=== PATIENT | male | born 1930 | race Caucasian/White ===

== ENCOUNTER → 2016-08-14 | Outpatient (REF) | payer MEDICARE, OTHER ==
[2016-08-14 18:43] LABS: TOTAL PROTEIN 6.3 GM/DL (6.4-8.2)
[2016-08-14 18:47] LABS: VITAMIN B12 LEVEL 1618 PG/ML
[2016-08-14 18:48] LABS: FOLATE 8.7 NG/ML
[2016-08-15 13:54] LABS: ALBUMIN 2.82 GM/DL (3.29-5.55); ALBUMIN % 44.8 % (55.8-66.1); GAMMA GLOBULIN % 22.7 % (11.1-18.8)
== END ==
LOC: M LABNEURO 17:05
PROVIDERS: ATTEND Psychiatry & Neurology Neurology
DX: G62.9 Polyneuropathy, unspecified (principal)

== ENCOUNTER 2016-08-20 14:29 | Inpatient (IN) | payer MEDICARE, OTHER ==
[~2016-08-20] VITALS: Ht 170.2 cm; Wt 49.6 kg
[2016-08-20 15:01] LABS: ABG BASE EXCESS 4.4 (-2.0-2.0); ABG DEVICE NASAL CANN; ABG HCO3 29.3 MEQ/L (22.0-26.0); ABG PARTIAL PRESSURE CO2 45.5 mmHg (35.0-45.0); ABG PARTIAL PRESSURE O2 109.6 mmHg (75.0-100.0); ABG STANDARD HCO3 28.5 MEQ/L (22.0-26.0); ABG TOTAL CO2 30.7 MEQ/L (23.0-31.0); ABG pH (ARTERIAL) 7.427 UNITS (7.350-7.450)
[2016-08-20 15:09] LABS: ADD MORPHOLOGY? YES; BASO % 0.1 % (0.0-1.0); EOS # 0.2 K/mm3 (0.0-0.50); EOS % 2.3 % (0.0-3.0); LARGE UNSTAINED CELL % 0.4 % (0.0-4.0); LYMPH # 0.4 K/mm3 (1.5-4.5); LYMPH % 3.1 % (24.0-44.0); MEAN CORPUSCULAR HEMOGLOBIN 26.2 pg (27.0-33.0); MEAN CORPUSCULAR HGB CONC 29.8 g/dl (32.0-36.5); MEAN CORPUSCULAR VOLUME 87.9 fl (80.0-96.0); MONO # 0.4 K/mm3 (0.0-0.8); MONO % 3.7 % (0.0-5.0); NEUTROPHILS # 9.5 K/mm3 (1.8-7.7); NEUTROPHILS % 90.5 % (36.0-66.0); PLATELET COUNT, AUTOMATED 310 k/mm3 (150-450); RED CELL DISTRIBUTION WIDTH 14.9 % (11.5-14.5); WHITE BLOOD COUNT 10.5 K/mm3 (4.0-10.0)
[2016-08-20 15:28] LABS: HYPOCHROMASIA 2+
[2016-08-20 15:35] LABS: ANION GAP 6 MEQ/L (8-16); BLOOD UREA NITROGEN 11 MG/DL (7-18); CALCIUM LEVEL 8.6 MG/DL (8.8-10.2); CARBON DIOXIDE LEVEL 37 MEQ/L (21-32); CHLORIDE LEVEL 96 MEQ/L (98-107); CREATININE FOR GFR 0.72 MG/DL (0.70-1.30); GLOMERULAR FILTRATION RATE > 60.0 (>35); GLUCOSE, FASTING 118 MG/DL (83-110); POTASSIUM SERUM 3.4 MEQ/L (3.5-5.1); SODIUM LEVEL 139 MEQ/L (136-145)
--- NOTE | 2016-08-20 15:57 | REP ---
Chest x-ray: Two views. History: Shortness of breath. Comparison chest x-ray April 04, 2015. Findings: The patient is status post prior median sternotomy. Heart is enlarged. There is pleural opacity bilaterally consistent with bilateral pleural effusions. This appears to be larger on the left than the right. Diffuse interstitial edema pattern is seen superimposed on some interstitial fibrosis. This patient is status post esophagectomy and gastric pull-through procedure. This produces a large soft tissue density to the right of the spine which is unchanged. There are old post thoracotomy changes on the right. Impression: Cardiomegaly, bilateral pleural effusions and diffuse interstitial edema pattern suggestive of CHF. Post surgical changes including esophagectomy and gastric pull-through procedure. Signed by Reji Jaffe MD 08/20/2016 04:22 P
[2016-08-20] MEDS ORDERED: GAVISUS PO (16:15)
[2016-08-20] MEDS ORDERED: DEXI60CA PO (16:15)
[2016-08-20] MEDS ORDERED: BREO1INH3 INH (16:15)
[2016-08-20] MEDS ORDERED: AZOP0.2S OD (16:15)
[2016-08-20] MEDS ORDERED: SUCR1TAB56 PO (16:15)
[2016-08-20] MEDS ORDERED: FURO20TA2 PO (16:15)
[2016-08-20] MEDS ORDERED: LOPE2TAB PO (16:15)
[2016-08-20] MEDS ORDERED: LIVA2TAB PO (16:15)
[2016-08-20] MEDS ORDERED: LEVO75TA34 PO (16:15)
[2016-08-20] MEDS ORDERED: NITR4TASL SL (16:15)
[2016-08-20] MEDS ORDERED: ACET50TAOT PO (16:15)
[2016-08-20] MEDS ORDERED: ELIQ2.5T PO (16:15)
[2016-08-20] MEDS ORDERED: ASPI1TAB PO (16:15)
[2016-08-20] MEDS ORDERED: FLOM5CAP PO (16:15)
[2016-08-20] MEDS ORDERED: CILO50TA PO (16:15)
[2016-08-20] MEDS ORDERED: SERT-138 PO (16:15)
[2016-08-20] MEDS ORDERED: TRAM50TA2 PO (16:15)
[2016-08-20] MEDS ORDERED: FUROSEMIDE 40 MG/4 ML VIAL (J1940) As Ordered ONE (16:48)
--- NOTE | 2016-08-20 17:37 | HPEPDOC ---
Medical History and Physical Date of Admission 08/20/16 History and Physical PRIMARY CARE PROVIDER: Dr. Oc Thakkar ATTENDING: Elio Page M.D. CHIEF COMPLAINT: Shortness of breath HISTORY OF PRESENT ILLNESS: This is a 86-year-old male with very extensive past medical history including CAD status post CABG 1, PAD status post bilateral lower extremity stents, carotid stenosis, ?COPD, atrial fibrillation on Eliquis, , hyperlipidemia, history of esophageal and bladder cancer who presents complaining of shortness of breath. states that the patient's been complaining of shortness of breath over the past 2 days more so today. Has a nonproductive cough. No sick contacts. Family denies any notable history for congestive heart failure. Although the patient is on Lasix daily. The patient is also on home O2. Patient family is recently moved up. From [facility] 2 weeks ago. Patient has also been seen by Dr. Alva after which he had an MRI of the brain with a diagnosis of normal pressure hydrocephalus. Patient was referred to Dr. Li however family states they prefer not to pursue surgical intervention for possible shunt. Patient also had melanotic stools in July while in [place] and had an EGD which was negative per family. In the ED patient had a chest x-ray was notable for pulmonary congestion as well as pleural effusions. PAST MEDICAL HISTORY: As per HPI PAST SURGICAL HISTORY: Bladder cancer status post cystoscopy ? Resection, CABG 1 RCA, hernia repair, PAD status post bilateral lower extremity stents. EGD July 2016 negative per family SOCIAL HISTORY: No tobacco, alcohol, illicit drug use. FAMILY HISTORY: Noncontributory ALLERGIES: Please see below. REVIEW OF SYSTEMS: HEENT: Denies sore throat/headache CARDIOVASCULAR: Denies chest pain/palpitations RESPIRATORY: + shortness of breath/cough GASTROINTESTINAL: denies nausea/vomiting GENITOURINARY: Denies dysuria/urinary urgency. MUSCULOSKELETAL: Denies myalgias/arthralgias NEUROLOGICAL: Denies any focal weakness Rest of ROS negative. HOME MEDICATIONS: Please see below. PHYSICAL EXAMINATION: Vitals: (see below) General: No acute distress, laying comfortably in bed. HEENT: Moist mucous membranes. Neck: No JVD or lymphadenopathy Cardiac: Irregularly irregular, No murmurs Pulm: Diminished breath sounds, coarse crackles, and rhonchi bilaterally. No wheezing or stridor. No use of the sensory muscles. Abd: NT/ND + BS Ext: Trace edema bilateral lower extremities. LABORATORY DATA: See below. IMAGING: CXR 08/20/16 Impression: Cardiomegaly, bilateral pleural effusions and diffuse interstitial edema pattern suggestive of CHF. Post surgical changes including esophagectomy and gastric pull-through procedure. MICROBIOLOGY: Please see below. ASSESSMENT/PLAN: 1. Acute decompensated congestive heart failure. Unknown EF at this time. Chest x-ray pulmonary congestion. BNP greater than 300. We'll start patient on Lasix IV twice a day. Echocardiogram pending. We will also trend cardiac markers. EKG with atrial fibrillation with no acute ST changes. Patient denies any chest pain. Shortness of breath has significantly improved in the ED. Fluid restriction and low-salt diet. 2. Atrial fibrillation, on Eliquis. It appears that the patient's is rate controlled at this time. The patient had run out of his Eliquis 8 days ago and was waiting for prescription to be filled. We'll restart the patient's Eliquis, and continue beta rolando. 3. H/o of CAD status post CABG- continue aspirin, statin, beta rolando 4. History of peripheral artery disease status post stents- continue aspirin statin 5. Recent diagnosis of normal pressure hydrocephalus- follows with Dr. Alva. Family would like to hold off on obtaining a consultation with Dr. Li for possible shunt. 6. History of bladder cancer and esophageal cancer status post resection 7. Depression- continue home meds 8. BPH- continue Flomax 9. History of melanotic stools- family states that the patient has a negative EGD in July on [place]. No recent melanotic stools. Patient be followed by Dr. Lurdes Patel starting 08/21/16 at 7 AM. Vital Signs Blood pressure 96/56, heart rate 85, respiratory rate 16, oxygen saturation 98% on 4 L nasal cannula, afebrile Laboratory Data Labs 24H Laboratory Tests 2 08/20/16 14:49: Anion Gap 6L, B-Type Natriuretic Peptide 384H, White Blood Count 10.5H, Red Blood Count 3.58L, Hemoglobin 9.4L, Hematocrit 31.5L, Mean Corpuscular Volume 87.9, Mean Corpuscular Hemoglobin 26.2L, Mean Corpuscular Hemoglobin Concent 29.8L, Red Cell Distribution Width 14.9H, Platelet Count 310, Neutrophils (%) ( Auto) 90.5H, Lymphocytes (%) (Auto) 3.1L, Monocytes (%) (Auto) 3.7, Eosinophils (%) (Auto) 2.3, Basophils (%) (Auto) 0.1, Neutrophils # (Auto) 9.5H, Lymphocytes # (Auto) 0.4L, Monocytes # (Auto) 0.4, Eosinophils # (Auto) 0.2, Basophils # (Auto) 0.0, Blood Urea Nitrogen 11, Creatinine 0.72, Sodium Level 139, Potassium Level 3.4L, Chloride Level 96L, Carbon Dioxide Level 37H, Calcium Level 8.6L, Total Creatine Kinase 55, Creatine Kinase MB 1.5, Creatine Kinase MB Relative Index 2.72, Glomerular Filtration Rate > 60.0, Hypochromasia 2+, Large Unclassified Cells # 0.0, Large Unclassified Cells % 0.4, Platelet Estimate NORMAL, Troponin I 0.05 08/20/16 14:50: Lactic Acid (Sepsis) 1.3 08/20/16 14:56: Arterial Blood pH 7.427, Arterial Blood Partial Pressure CO2 45.5H, Arterial Blood Partial Pressure O2 109.6H, Arterial Blood Total CO2 30.7, Arterial Blood HCO3 29.3H, Arterial Blood Base Excess 4.4H, Arterial Blood Oxygen Saturation 98.4, Blood Gas Bicarbonate Standard 28.5H, Oxygen Delivery Device NASAL XU CBC/BMP Laboratory Tests 08/20/16 14:49 Calcium Level 8.6 L, Total Creatine Kinase 55, Red Blood Count 3.58 L, Mean Corpuscular Volume 87.9, Mean Corpuscular Hemoglobin 26.2 L, Mean Corpuscular Hemoglobin Concent 29.8 L, Red Cell Distribution Width 14.9 H, Neutrophils (%) ( Auto) 90.5 H, Lymphocytes (%) (Auto) 3.1 L, Monocytes (%) (Auto) 3.7, Eosinophils (%) (Auto) 2.3, Basophils (%) (Auto) 0.1, Neutrophils # (Auto) 9.5 H , Lymphocytes # (Auto) 0.4 L, Monocytes # (Auto) 0.4, Eosinophils # (Auto) 0.2, Basophils # (Auto) 0.0 Microbiology Microbiology 08/20/16 Blood Culture, Received Pending 08/20/16 Blood Culture, Received Pending Home Medications Scheduled (Dexilant) 60 Mg Cap 60 MG PO DAILY Acetaminophen (Acetaminophen) 500 Mg Tab 1,000 MG PO QID Apixaban Base (Eliquis) 2.5 Mg Tab 2.5 MG PO BID HAS BEEN OUT FOR ABOUT 8 DAYS NOW Aspirin (Aspirin 81) 81 Mg Tab 81 MG PO DAILY Brinzolamide (Azopt) 1 % Dominique 1 DROP OD BID Cilostazol (Cilostazol) 50 Mg Tab 50 MG PO BID Fluticasone/Vilanterol (Breo Ellipta 200-25 Mcg/INH) 1 Inh Inh 1 PUFF INH QHS Furosemide (Furosemide) 20 Mg Tab 20 MG PO DAILY Levothyroxine Sodium (Levoxyl) 75 Mcg Tab 75 MCG PO DAILY Pitavastatin Calcium (Livalo) 2 Mg Tab 2 MG PO QHS Sertraline HCl (Sertraline HCl) 100 Mg Tab 100 MG PO DAILY Sucralfate (Sucralfate) 1 Gm Tab 1 GM PO ACHS Tamsulosin Hydrochloride (Flomax) 0.4 Mg Cap 0.4 MG PO QHS once daily 1/2 hour following the same meal each day Tramadol HCl (Tramadol HCl) 50 Mg Tab 50 MG PO BID Scheduled PRN (Gaviscon 95-358 mg/15Ml) 1 Dominique Dominique 1 DOMINIQUE PO QHS PRN PRN HEARTBURN/INDIGESTION Loperamide HCl (Loperamide HCl) 2 Mg Tab 2 MG PO PRN PRN PRN DIARRHEA Nitroglycerin (Nitrostat) 0.4 Mg Subl 0.4 MG SL NITRO PRN PRN CHEST PAIN Allergies Coded Allergies: Penicillins (Verified Allergy, Intermediate, HIVES, 08/20/16) TAPE (Unverified Allergy, Unknown, HIVES, 08/20/16) ELIO PAGE MD Aug 20, 2016 17:37
[2016-08-20] MEDS ORDERED: POTASSIUM CHLORIDE 10 MEQ SR TABLET PO ONE (17:45)
--- NOTE | 2016-08-20 18:12 | REP ---
CT of the chest without IV contrast: Comparison 02/06/2007. The patient has a gastric pull-through procedure, similar to the prior study. On the study today., there is a moderate left pleural effusion and a small right pleural effusion. There are multiple small lung nodules all in the 3-4 mm size range. There is interstitial coarsening. This was not present previously. This could be acute or chronic, cardiogenic or noncardiogenic. There is no mediastinal adenopathy. In the absence of IV contrast M unable to determine if there is axillary or hilar adenopathy. Cardiac size appears upper normal. There is no pericardial effusion. Upper abdomen: Probable gallbladder calculus. Left renal upper pole cysts. I suspect there are calcifications in the wall of a large left renal upper pole cyst, not present previously. Signed by Finn Wong MD 08/20/2016 06:04 P
--- NOTE | 2016-08-20 20:36 | EDDOCDS ---
Physician Documentation [facility] Name: Marques Oliveira Age: 86 yrs Sex: Male : 1930 Arrival Date: 08/20/2016 Time: 14:29 Bed 4 Private MD: Disposition: 08/20/16 16:12 Hospitalization ordered by Nima Page for Inpatient Admission. Preliminary diagnosis is Acute on chronic combined systolic (congestive) and diastolic (congestive) heart failure. - Bed requested for PCU. - Status is Inpatient Admission. af2 - Condition is Stable. - Problem is an acute exacerbation. - Symptoms are unchanged. Historical: - Allergies: Adhesives; band-aids; PENICILLINS (Hives); - Home Meds: 1. Acetaminophen 1 gram Oral every 6 hours as needed 2. tramadol 50 mg oral tab every 4 hours as needed (Last dose: 08/20/2016 08:30) 3. gavisocon regular strength 15 ml nightly as needed 4. aspirin 81 mg Oral tab 1 tab once daily enteric coated 5. Azopt 1 drop in right eye twice daily 6. cilostazol 50 mg oral tab 1 tab 2 times per day 7. clopidogrel 75 mg oral tab 1 tab once daily 8. cyanocobalamin (vitamin B-12) 1,000 mcg oral tab daily 9. fluticasone-vilanterol 200 mcg/25mcg 1 puff daily 10. furosemide 20 mg oral tab once daily 11. levothyroxine 75 mcg oral tab once daily 12. lidocaine topical 5% 4 times daily as needed 13. loperamide 2 mg oral tab twice a day as needed 14. namzaric 28 mg/10 mg ER 1 cap in the evening 15. multivitamin Oral cap daily 16. nitroglycerin 0.4 mg SL subl 1 tab every 5 minutes 17. pitavastatin 2 mg oral tab 1 tab once daily 18. Sertraline 100 mg daily 19. sucralfate 1 gram Oral tab 1 tab 4 times per day 20. tamsulosin 0.4 mg oral cp24 1 cap once daily after supper 21. apixaban 2.5 mg oral tab 1 tab 2 times per day none in 8 days 22. diltiazem HCl 180 mg oral cp24 once daily 23. Protonix 40 mg Oral TbEC 1 tab once daily - PMHx: hydrocephalus; CAD; PVD; Atrial Fib; Hypercholesterolemia; Cancer, Bladder; cancer, esophagus; carotid stenosis; BPH; Arthritis; - PSHx: cystoscopy; introduction of catheter in aorta; aortography; CABG; Hernia repair; stent placement in right leg; stent placement in left leg; - Social history: Smoking status: Patient states former smoker of tobacco. No barriers to communication noted, The patient speaks fluent Yoruba. - Family history: Not pertinent. - : The pt / caregiver states he / she is on anticoagulants: Plavix. [facility] medication list is obtained from patient list. - Exposure Risk Screening:: None identified. Vital Signs: 08/20 14:47 BP 123 / 76 (auto/); ead 14:49 BP 123 / 76; Pulse 95; Resp 22; Temp 97.7(O); Pulse Ox 99% on 2 lpm NC; Weight 55.34 kg ct3 / 122 lbs (M); 14:50 Pulse 94 MON; Pulse Ox 98% ; ead 15:15 BP 111 / 66 (auto/); ead 15:15 Pulse 98 MON; Pulse Ox 99% ; ead 15:17 BP 118 / 62 (auto/); ead 15:18 Pulse 90 MON; Pulse Ox 100% ; ead 15:28 Temp 97.7(O); ead 15:47 BP 99 / 62 (auto/); ead 15:48 Pulse 94 MON; Pulse Ox 100% ; ead 16:02 BP 106 / 57 (auto/); ead 16:03 Pulse 92 MON; Pulse Ox 100% ; ead 16:17 BP 106 / 63 (auto/); ead 16:18 Pulse 94 MON; Pulse Ox 99% ; ead 16:32 BP 103 / 56 (auto/); ead 16:33 Pulse 96 MON; Pulse Ox 99% ; ead 16:47 BP 92 / 52 (auto/); ead 16:48 Pulse 98 MON; Pulse Ox 99% ; ead 16:50 Pulse 90 MON; Pulse Ox 99% ; ead 16:50 BP 90 / 57 (auto/); ead 16:51 Pulse 92 MON; Pulse Ox 98% ; ead 17:02 BP 103 / 58 (auto/); ead 17:03 Pulse 98 MON; Pulse Ox 98% ; ead 17:17 BP 115 / 60 (auto/); ead 17:18 BP 115 / 60; Pulse 100 MON; Resp 18; Temp 97.7; Pulse Ox 98% ; ead 17:32 BP 115 / 58 (auto/); ead 17:33 Pulse 98 MON; Pulse Ox 99% ; ead 17:47 BP 106 / 62 (auto/); ead 17:48 Pulse 96 MON; Pulse Ox 100% ; ead 18:02 BP 107 / 60 (auto/); ead 18:03 Pulse 90 MON; Resp 18; Pulse Ox 100% on 4 lpm NC; ead 18:17 BP 103 / 69 (auto/); ead 18:18 Pulse 96 MON; Resp 18; Pulse Ox 99% on 4 lpm NC; ead 18:20 Temp 98.1(O); ead 19:02 BP 127 / 99 (auto/); af2 19:03 Pulse 130 MON; Resp 18 S; Pulse Ox 99% on 4 lpm NC; af2 19:17 BP 159 / 64 (auto/); af2 19:18 Pulse 106 MON; Resp 18 S; Pulse Ox 99% on 4 lpm NC; af2 19:32 BP 131 / 68 (auto/); af2 19:33 Pulse 100 MON; Resp 18 S; Pulse Ox 100% on 4 lpm NC; af2 19:47 BP 151 / 69 (auto/); af2 19:48 Pulse 98 MON; Resp 18 S; Pulse Ox 99% on 4 lpm NC; af2 20:02 BP 123 / 80 (auto/); af2 20:03 Pulse 104 MON; Resp 18 S; Pulse Ox 100% on 4 lpm NC; af2 20:17 BP 141 / 95 (auto/); af2 20:17 Pulse 122 MON; Resp 18 S; Pulse Ox 99% on 4 lpm NC; af2 20:22 BP 128 / 72 (auto/); af2 20:23 Pulse 104 MON; Resp 18 S; Temp 97.9(TE); Pulse Ox 99% on 4 lpm NC; af2 MDM: 14:32 -Blood Culture (Adults Only), peripheral from different site, or from device/port/PICC le etc. if present ordered. 14:32 Lens Blank Gauger/Pulse Ox/q 15 min VS ordered. le 14:32 IV Saline Lock ordered. le 14:32 Oxygen at 4L/Min NC or Home dosage ordered. le 14:32 Rhythm Strip to chart ordered. le 14:32 -Blood Culture Ordered. EDMS 14:32 B-Type Natiuretic Peptide Ordered. EDMS 14:32 Basic Metabolic Profile Ordered. EDMS 14:32 CBC with Diff Ordered. EDMS 14:32 Cardiac Injury Profile Ordered. EDMS 14:32 Troponin Ordered. EDMS 14:34 Call Respiratory ordered. le 14:34 Chest, 2 View (pa\E\lat) Ordered. EDMS 14:34 ECG WITH READING ER PHYS+CARDIAG ordered. EDMS 14:35 -Arterial Blood Gas Ordered. EDMS 14:40 Bladder Scan please ordered. le 14:50 Lactic Acid (Albert tube on ice) Ordered. EDMS 14:51 BED REQUEST+ADM ordered. EDMS 14:52 Repeat Temperature - Oral: Inform provider of result ordered. le 14:59 Call Respiratory complete. lbd 14:59 -Blood Culture (Adults Only), peripheral from different site, or from device/port/PICC lbd etc. if present complete. 15:01 BLOOD CULTURES Ordered. EDMS 15:11 RBC MORPH PROF NO CHARGE Ordered. EDMS 16:00 B-Type Natiuretic Peptide Reviewed. le 16:00 Basic Metabolic Profile Reviewed. le 16:00 CBC with Diff Reviewed. le 16:00 -Arterial Blood Gas Reviewed. le 16:00 Cardiac Injury Profile Reviewed. le 16:00 Troponin Reviewed. le 16:00 Lactic Acid (Albert tube on ice) Reviewed. le 16:00 RBC MORPH PROF NO CHARGE Reviewed. le 16:09 Furosemide 40 mg IVP once ordered. le 16:31 Financial registration complete. [id number] 16:49 CT Chest without contrast Ordered. EDMS 16:53 PHYSICAL THERAPY EVAL & TREAT ordered. EDMS 16:54 Admission / Observation Status ordered. EDMS 16:54 ECHOCARD,DOPPLER/COLOR FLOW ordered. EDMS 16:54 2 GRAM SODIUM DIET ordered. EDMS 16:54 LOW FAT LOW CHOLESTEROL DIET ordered. EDMS 19:31 CARDIAC INJURY PROFILE Ordered. EDMS 19:31 CARDIAC INJURY PROFILE Ordered. EDMS 19:31 TROPONIN Ordered. EDMS 19:31 TROPONIN Ordered. EDMS Administered Medications: 16:57 Drug: Furosemide 40 mg [furosemide 10 mg/mL injection solution (4 mL)] {Note: pt's bp ead 90/57. discussed with Ritika Mancera VALET ATTENDANT, 20mg given now. will give remaining 20 mg at approx 1800.} Route: IVP; Site: left forearm; 18:10 Follow up: remaining 20mg given IVP earuby Signatures: Dispatcher [employer] EDMS Monica Sherman, RN RN osiel Sandra Mcleod, Family Practice Medical Doctor Unit lbd Fiordaliza Ritika, VALET ATTENDANT VALET ATTENDANT Etelvina Ocampo RN RN ead Fulton, Amber, RN RN af2 Anna Bess, Reg Reg [id number] The chart was reviewed and I authenticate all verbal orders and agree with the evaluation and treatment provided.Corrections: (The following items were deleted from the chart) 17:01 16:55 CARDIAC INJURY PROFILE ordered. EDMS EDMS 17:01 16:55 TROPONIN ordered. EDMS EDMS MTDD
--- NOTE | 2016-08-20 20:36 | EDDOCDS ---
Nurse's Notes [facility] Name: Marques Oliveira Age: 86 yrs Sex: Male : 1930 Arrival Date: 08/20/2016 Time: 14:29 Bed 4 Private MD: Diagnosis: Acute on chronic combined systolic (congestive) and diastolic (congestive) heart failure Presentation: 08/20 14:34 Presenting complaint: EMS states: patient has not felt well for a couple of weeks - kcs today with increased difficulty breathing. Suicide/Homicide risk assessment- the patient denies having any suicidal and/or homicidal ideations and does not present with any other emotional, behavioral or mental health complaints. Status: Patient is not a visitor services assistant or dependent. Transition of care: patient was not received from another setting of care. Care prior to arrival: See EMS report. Oxygen administered by EMS. 14:34 Acuity: RICHARD Level 3 kcs 14:34 Method Of Arrival: Ambulance kcs 14:34 Presenting complaint: states: patient has been unable to void today was able kcs yesterday - was eating and drinking normally yesterday. 18:27 Adult Sepsis Screening: Patient has a qSOFA score of. ead 19:27 Adult Sepsis Screening: The patient does not have new or worsening altered mentation. af2 Patient's respiratory rate is less than 22. Systolic blood pressure is greater than 100. Triage Assessment: 20:24 Respiratory: Onset: The symptoms/episode began/occurred at an unknown time. af2 Historical: - Allergies: Adhesives; band-aids; PENICILLINS (Hives); - Home Meds: 1. Acetaminophen 1 gram Oral every 6 hours as needed 2. tramadol 50 mg oral tab every 4 hours as needed (Last dose: 08/20/2016 08:30) 3. gavisocon regular strength 15 ml nightly as needed 4. aspirin 81 mg Oral tab 1 tab once daily enteric coated 5. Azopt 1 drop in right eye twice daily 6. cilostazol 50 mg oral tab 1 tab 2 times per day 7. clopidogrel 75 mg oral tab 1 tab once daily 8. cyanocobalamin (vitamin B-12) 1,000 mcg oral tab daily 9. fluticasone-vilanterol 200 mcg/25mcg 1 puff daily 10. furosemide 20 mg oral tab once daily 11. levothyroxine 75 mcg oral tab once daily 12. lidocaine topical 5% 4 times daily as needed 13. loperamide 2 mg oral tab twice a day as needed 14. namzaric 28 mg/10 mg ER 1 cap in the evening 15. multivitamin Oral cap daily 16. nitroglycerin 0.4 mg SL subl 1 tab every 5 minutes 17. pitavastatin 2 mg oral tab 1 tab once daily 18. Sertraline 100 mg daily 19. sucralfate 1 gram Oral tab 1 tab 4 times per day 20. tamsulosin 0.4 mg oral cp24 1 cap once daily after supper 21. apixaban 2.5 mg oral tab 1 tab 2 times per day none in 8 days 22. diltiazem HCl 180 mg oral cp24 once daily 23. Protonix 40 mg Oral TbEC 1 tab once daily - PMHx: hydrocephalus; CAD; PVD; Atrial Fib; Hypercholesterolemia; Cancer, Bladder; cancer, esophagus; carotid stenosis; BPH; Arthritis; - PSHx: cystoscopy; introduction of catheter in aorta; aortography; CABG; Hernia repair; stent placement in right leg; stent placement in left leg; - Social history: Smoking status: Patient states former smoker of tobacco. No barriers to communication noted, The patient speaks fluent Wolof. - Family history: Not pertinent. - : The pt / caregiver states he / she is on anticoagulants: Plavix. Eliquis Home medication list is obtained from patient list. - Exposure Risk Screening:: None identified. Screenin:12 Screening information is obtained from the patient, family members. Fall risk: No risks ead identified. Fall risk: No risks identified. Assistance ADL's: requires no assistance with activities of daily living. Abuse/DV Screen: The patient / caregiver reports he/she is: not in a situation that causes fear, pain or injury. Nutritional screening: No deficits noted. home support is adequate. 19:27 Advance Directives: Further advance directive information is declined. af2 Assessment: 15:35 General: Appears in no apparent distress, Behavior is appropriate for age, cooperative. ead Neurological: Level of Consciousness is awake, alert, obeys commands, Oriented to person, place, time. Cardiovascular: Capillary refill < 3 seconds Chest pain is denied. Respiratory: Airway is patent Respiratory effort is even, unlabored, Reports shortness of breath cough that is. Derm: Skin is pink, warm & dry. 16:45 General: Appears in no apparent distress, comfortable, Behavior is appropriate for age, ead cooperative. Neurological: Level of Consciousness is awake, alert, obeys commands, Oriented to person, place, time. Respiratory: Airway is patent Respiratory effort is even, unlabored, Derm: Skin is pink, warm & dry. 17:27 General: Appears in no apparent distress, comfortable, Behavior is appropriate for age, ead cooperative. Respiratory: Respiratory effort is even, unlabored. Derm: Skin is pink, warm & dry. 18:10 General: Appears in no apparent distress, comfortable, Behavior is appropriate for age, ead cooperative. Pain: Denies pain. Neurological: No deficits noted. Respiratory: Airway is patent Respiratory effort is even, unlabored, Respiratory pattern is regular, symmetrical. Derm: Skin is pink, warm & dry. 18:12 Adult Sepsis Screening: The patient does not have new or worsening altered mentation. ead Patient's respiratory rate is less than 22. Systolic blood pressure is greater than 100. Patient has a qSOFA score of 0- Negative Sepsis Screen. 19:27 General: Appears in no apparent distress, comfortable, Behavior is appropriate for age, af2 cooperative, Assumed care of pt at this time, RR even and unlabored. Pt seated in upright position, eating meal tray. Will continue to monitor. PCU to call when ready to accept pt.. Cardiovascular: Rhythm is atrial fibrillation. Respiratory: Airway is patent Respiratory effort is even, unlabored. Derm: Skin is pink, warm & dry. 20:24 General: Appears in no apparent distress, comfortable, Behavior is appropriate for age, af2 cooperative. Neurological: Level of Consciousness is awake, alert, obeys commands. Respiratory: Airway is patent Respiratory effort is even, unlabored. Derm: Skin is pink, warm & dry. Vital Signs: 14:47 BP 123 / 76 (auto/); ead 14:49 BP 123 / 76; Pulse 95; Resp 22; Temp 97.7(O); Pulse Ox 99% on 2 lpm NC; Weight 55.34 kg ct3 (M); 14:50 Pulse 94 MON; Pulse Ox 98% ; ead 15:15 BP 111 / 66 (auto/); ead 15:15 Pulse 98 MON; Pulse Ox 99% ; ead 15:17 BP 118 / 62 (auto/); ead 15:18 Pulse 90 MON; Pulse Ox 100% ; ead 15:28 Temp 97.7(O); ead 15:47 BP 99 / 62 (auto/); ead 15:48 Pulse 94 MON; Pulse Ox 100% ; ead 16:02 BP 106 / 57 (auto/); ead 16:03 Pulse 92 MON; Pulse Ox 100% ; ead 16:17 BP 106 / 63 (auto/); ead 16:18 Pulse 94 MON; Pulse Ox 99% ; ead 16:32 BP 103 / 56 (auto/); ead 16:33 Pulse 96 MON; Pulse Ox 99% ; ead 16:47 BP 92 / 52 (auto/); ead 16:48 Pulse 98 MON; Pulse Ox 99% ; ead 16:50 Pulse 90 MON; Pulse Ox 99% ; ead 16:50 BP 90 / 57 (auto/); ead 16:51 Pulse 92 MON; Pulse Ox 98% ; ead 17:02 BP 103 / 58 (auto/); ead 17:03 Pulse 98 MON; Pulse Ox 98% ; ead 17:17 BP 115 / 60 (auto/); ead 17:18 BP 115 / 60; Pulse 100 MON; Resp 18; Temp 97.7; Pulse Ox 98% ; ead 17:32 BP 115 / 58 (auto/); ead 17:33 Pulse 98 MON; Pulse Ox 99% ; ead 17:47 BP 106 / 62 (auto/); ead 17:48 Pulse 96 MON; Pulse Ox 100% ; ead 18:02 BP 107 / 60 (auto/); ead 18:03 Pulse 90 MON; Resp 18; Pulse Ox 100% on 4 lpm NC; ead 18:17 BP 103 / 69 (auto/); ead 18:18 Pulse 96 MON; Resp 18; Pulse Ox 99% on 4 lpm NC; ead 18:20 Temp 98.1(O); ead 19:02 BP 127 / 99 (auto/); af2 19:03 Pulse 130 MON; Resp 18 S; Pulse Ox 99% on 4 lpm NC; af2 19:17 BP 159 / 64 (auto/); af2 19:18 Pulse 106 MON; Resp 18 S; Pulse Ox 99% on 4 lpm NC; af2 19:32 BP 131 / 68 (auto/); af2 19:33 Pulse 100 MON; Resp 18 S; Pulse Ox 100% on 4 lpm NC; af2 19:47 BP 151 / 69 (auto/); af2 19:48 Pulse 98 MON; Resp 18 S; Pulse Ox 99% on 4 lpm NC; af2 20:02 BP 123 / 80 (auto/); af2 20:03 Pulse 104 MON; Resp 18 S; Pulse Ox 100% on 4 lpm NC; af2 20:17 BP 141 / 95 (auto/); af2 20:17 Pulse 122 MON; Resp 18 S; Pulse Ox 99% on 4 lpm NC; af2 20:22 BP 128 / 72 (auto/); af2 20:23 Pulse 104 MON; Resp 18 S; Temp 97.9(TE); Pulse Ox 99% on 4 lpm NC; af2 Vitals: 14:49 Log In Time N/A - ambulance arrival. ct3 ED Course: 14:30 Patient visited by Sandra Mcleod, Crap Game Box Person. lbd 14:30 Patient moved to Waiting lbd 14:31 Etelvina Hitchcock,RN is Primary Nurse. lbd 14:31 Ritika Mancera FNP is PHCP. le 14:31 Patient moved to 4 lbd 14:36 Triage Initiated kcs 14:41 Patient visited by Ritika Mancera FNP. le 14:41 Patient visited by Ritika Mancera FNP. le 14:49 Accompanied by Family Member, Patient has correct armband on for positive ct3 identification. Placed in gown. Bed in low position. Call light in reach. Side rails up X2. groundwater monitoring technician on. Pulse ox on. NIBP on. 14:49 EKG done. (by ED staff). Reviewed by Ritika TRINIDAD. ct3 14:52 Patient visited by Candelaria Lloyd PCA. ct3 14:58 -Arterial Blood Gas Sent. cs15 15:02 Inserted saline lock: 20 gauge in left forearm and blood collected. The patient dy tolerated the procedure well. Labs drawn. (by ED staff). Sent per order to lab. 15:09 Lactic Acid (Albert tube on ice) Sent. ead 15:24 Patient visited by Etelvina Hitchcock,JULIANA. ead 15:35 The patient / caregiver is instructed regarding the plan of care and ED course. ead 15:35 Bladder Scan completed Results: 61 ml. ead 16:12 Nima Page is Hospitalizing Provider. le 16:27 Chest, 2 View (pa\E\lat) Returned. EDMS 18:10 No procedures done that require assistance. ead 18:14 CT Chest without contrast Returned. EDMS 18:59 Diana KwongRN is Primary Nurse. af2 19:28 Patient visited by Diana Kwong RN. af2 20:24 Patient visited by Diana KwongRN. af2 20:27 Patient visited by Diana Kwong RN. af2 Administered Medications: 16:57 Drug: Furosemide 40 mg [furosemide 10 mg/mL injection solution (4 mL)] {Note: pt's bp ead 90/57. discussed with Ritika Mancera HYDRAULIC AND PLUMBING INSTALLER, 20mg given now. will give remaining 20 mg at approx 1800.} Route: IVP; Site: left forearm; 18:10 Follow up: remaining 20mg given IVP ead Intake: RT: 14:58 ABG's drawn from right radial artery allens test done and positive pressure held for 5 cs15 minutes no bleeding noted pressure bandage applied specimen sent pt. tolerated well. O2 via nasal cannula \T\ 4L/min. Order Results: Lab Order: B-Type Natiuretic Peptide; SPEC'M 08/20/16 14:49 Test: BRAIN NATRIURETIC PEPTIDE; Value: 384; Range: <100; Abnormal: Above high normal; Units: PG/ML; Status: F Lab Order: Basic Metabolic Profile; SPEC'M 08/20/16 14:49 Test: GLUCOSE, FASTING; Value: 118; Range: 83-110; Abnormal: Above high normal; Units: MG/DL; Status: F Test: BLOOD UREA NITROGEN; Value: 11; Range: 7-18; Units: MG/DL; Status: F Test: CREATININE FOR GFR; Value: 0.72; Range: 0.70-1.30; Units: MG/DL; Status: F Test: GLOMERULAR FILTRATION RATE; Value: > 60.0; Range: >35; Status: F Test: SODIUM LEVEL; Value: 139; Range: 136-145; Units: MEQ/L; Status: F Test: POTASSIUM SERUM; Value: 3.4; Range: 3.5-5.1; Abnormal: Below low normal; Units: MEQ/L; Status: F Test: CHLORIDE LEVEL; Value: 96; Range: 98-107; Abnormal: Below low normal; Units: MEQ/L; Status: F Test: CARBON DIOXIDE LEVEL; Value: 37; Range: 21-32; Abnormal: Above high normal; Units: MEQ/L; Status: F Test: ANION GAP; Value: 6; Range: 8-16; Abnormal: Below low normal; Units: MEQ/L; Status: F Test: CALCIUM LEVEL; Value: 8.6; Range: 8.8-10.2; Abnormal: Below low normal; Units: MG/DL; Status: F Test Note: ; Units are mL/min/1.73 m2 Chronic Kidney Disease Staging per NKF: Stage I & II GFR >=60 Normal to Mildly Decreased Stage III GFR 30-59 Moderately Decreased Stage IV GFR 15-29 Severely Decreased Stage V GFR <15 Very Little GFR Left ESRD GFR <15 on FISHING [employer]ESSORIES MAKER Lab Order: CBC with Diff; SPEC'M 08/20/16 14:49 Test: WHITE BLOOD COUNT; Value: 10.5; Range: 4.0-10.0; Abnormal: Above high normal; Units: K/mm3; Status: F Test: RED BLOOD COUNT; Value: 3.58; Range: 4.30-6.10; Abnormal: Below low normal; Units: M/mm3; Status: F Test: HEMOGLOBIN; Value: 9.4; Range: 14.0-18.0; Abnormal: Below low normal; Units: g/dl; Status: F Test: HEMATOCRIT; Value: 31.5; Range: 42.0-52.0; Abnormal: Below low normal; Units: %; Status: F Test: MEAN CORPUSCULAR VOLUME; Value: 87.9; Range: 80.0-96.0; Units: fl; Status: F Test: MEAN CORPUSCULAR HEMOGLOBIN; Value: 26.2; Range: 27.0-33.0; Abnormal: Below low normal; Units: pg; Status: F Test: MEAN CORPUSCULAR HGB CONC; Value: 29.8; Range: 32.0-36.5; Abnormal: Below low normal; Units: g/dl; Status: F Test: RED CELL DISTRIBUTION WIDTH; Value: 14.9; Range: 11.5-14.5; Abnormal: Above high normal; Units: %; Status: F Test: PLATELET COUNT, AUTOMATED; Value: 310; Range: 150-450; Units: k/mm3; Status: F Test: NEUTROPHILS %; Value: 90.5; Range: 36.0-66.0; Abnormal: Above high normal; Units: %; Status: F Test: LYMPH %; Value: 3.1; Range: 24.0-44.0; Abnormal: Below low normal; Units: %; Status: F Test: MONO %; Value: 3.7; Range: 0.0-5.0; Units: %; Status: F Test: EOS %; Value: 2.3; Range: 0.0-3.0; Units: %; Status: F Test: BASO %; Value: 0.1; Range: 0.0-1.0; Units: %; Status: F Test: LARGE UNSTAINED CELL %; Value: 0.4; Range: 0.0-4.0; Units: %; Status: F Test: NEUTROPHILS #; Value: 9.5; Range: 1.8-7.7; Abnormal: Above high normal; Units: K/mm3; Status: F Test: LYMPH #; Value: 0.4; Range: 1.5-4.5; Abnormal: Below low normal; Units: K/mm3; Status: F Test: MONO #; Value: 0.4; Range: 0.0-0.8; Units: K/mm3; Status: F Test: EOS #; Value: 0.2; Range: 0.0-0.50; Units: K/mm3; Status: F Test: BASO #; Value: 0.0; Range: 0.0-0.2; Units: K/mm3; Status: F Test: LARGE UNSTAINED CELL #; Value: 0.0; Range: 0.0-0.4; Units: K/mm3; Status: F Lab Order: Cardiac Injury Profile; SPEC'M 08/20/16 14:49 Test: CPK CREATINE PHOSPHOKINASE; Value: 55; Range: 39-308; Units: U/L; Status: F Test: CK-MB VALUE MASS; Value: 1.5; Range: 0.0-3.6; Units: NG/ML; Status: F Test: MB/CK RELATIVE INDEX; Value: 2.72; Range: < OR =4; Status: F Test Note: ; DIAGNOSIS CRITERIA MMB ng/ml Relative Index (RI) NON-AMI < or = 5 N/A ALBERT ZONE > 5 < or = 4 AMI > 5 > 4 Lab Order: Troponin; [facility] 08/20/16 14:49 Test: TROPONIN I; Value: 0.05; Range: < 0.10; Units: NG/ML; Status: F Test Note: ; Troponin I Reference Interval for Vysr LOCI: 99th Percentile= 0.00-0.045 ng/ml Risk Stratification: <= 0.10 ng/ml Decreased Risk for Adverse Clinical Events. 0.10-1.50 ng/ml Increased Risk for Adverse Clinical Events. Evaluation of additional criterion and/or repeat testing in 2-6 hours is suggested to rule out myocardial damage. >= 1.50 ng/ml Indicative of Myocardial Injury. Lab Order: -Arterial Blood Gas; [facility] 08/20/16 14:56 Test: ABG pH (ARTERIAL); Value: 7.427; Range: 7.350-7.450; Units: UNITS; Status: F Test: ABG PARTIAL PRESSURE CO2; Value: 45.5; Range: 35.0-45.0; Abnormal: Above high normal; Units: mmHg; Status: F Test: ABG PARTIAL PRESSURE O2; Value: 109.6; Range: 75.0-100.0; Abnormal: Above high normal; Units: mmHg; Status: F Test: ABG TOTAL CO2; Value: 30.7; Range: 23.0-31.0; Units: MEQ/L; Status: F Test: ABG HCO3; Value: 29.3; Range: 22.0-26.0; Abnormal: Above high normal; Units: MEQ/L; Status: F Test: ABG BASE EXCESS; Value: 4.4; Range: -2.0-2.0; Abnormal: Above high normal; Status: F Test: ABG STANDARD HCO3; Value: 28.5; Range: 22.0-26.0; Abnormal: Above high normal; Units: MEQ/L; Status: F Test: ABG O2 SATURATION; Value: 98.4; Range: 95.0-99.0; Units: %; Status: F Test: ABG DEVICE; Value: NASAL XU; Status: F Lab Order: Lactic Acid (Albert tube on ice); SPEC'M 08/20/16 14:50 Test: LACTIC ACID SEPSIS PROTOCOL; Value: 1.3; Range: 0.4-2.0; Units: MMOL/L; Status: F Lab Order: RBC MORPH PROF NO CHARGE; SPEC'M 08/20/16 14:49 Test: PLATELET ESTIMATE; Range: NORMAL; Status: I Test: HYPOCHROMASIA; Value: 2+; Status: F Test: PLATELET ESTIMATE; Value: NORMAL; Range: NORMAL; Status: F Radiology Order: Chest, 2 View (pa\E\lat) Test: Chest, 2 View (pa\E\lat) REASON FOR EXAMINATION: Shortness of Breath; Chest x-ray: Two views.; ; History: Shortness of breath.; ; Comparison chest x-ray April 04, 2015.; ; Findings: The patient is status post prior median sternotomy. Heart is; enlarged. There is pleural opacity bilaterally consistent with bilateral pleural; effusions. This appears to be larger on the left than the right. Diffuse; interstitial edema pattern is seen superimposed on some interstitial fibrosis.; This patient is status post esophagectomy and gastric pull-through procedure.; This produces a large soft tissue density to the right of the spine which is; unchanged. There are old post thoracotomy changes on the right.; ; Impression:; ; Cardiomegaly, bilateral pleural effusions and diffuse interstitial edema pattern; suggestive of CHF. Post surgical changes including esophagectomy and gastric; pull-through procedure.; ; ; Signed by; Reji Jaffe MD 08/20/2016 04:22 P; Radiology Order: CT Chest without contrast Test: CT Chest without contrast REASON FOR EXAMINATION: congestion, underlying chf, ?infiltrate; CT of the chest without IV contrast:; ; Comparison 02/06/2007.; ; The patient has a gastric pull-through procedure, similar to the prior study.; ; On the study today., there is a moderate left pleural effusion and a small right; pleural effusion.; ; There are multiple small lung nodules all in the 3-4 mm size range.; ; There is interstitial coarsening. This was not present previously. This could; be acute or chronic, cardiogenic or noncardiogenic.; ; There is no mediastinal adenopathy. In the absence of IV contrast M unable to; determine if there is axillary or hilar adenopathy. Cardiac size appears upper; normal. There is no pericardial effusion.; ; Upper abdomen:; ; Probable gallbladder calculus. Left renal upper pole cysts. I suspect there are; calcifications in the wall of a large left renal upper pole cyst, not present; previously.; ; ; Signed by; Finn Wong MD 08/20/2016 06:04 P; Outcome: 16:12 Decision to Hospitalize by Provider. le 18:11 Discharge Assessment: patient administered narcotics - no. CT Study completed. ead 20:23 The following High Risk Discharge criteria are identified: None. Admitted to PCU af2 accompanied by nurse, accompanied by tech, via stretcher, with oxygen, on monitor, with chart. Condition: stable. Property :Personal belongings accompany Pt. 20:36 Patient left the ED. af2 Signatures: Dispatcher [employer] EDMS Monica Sherman, RN RN Sandra Vega, Crap Game Box Person Unit lbd Jamal Wilder RN RN dy Ritika Mancera, HYDRAULIC AND PLUMBING INSTALLER HYDRAULIC AND PLUMBING INSTALLER Candelaria Byrd, BEEHIVE KILN SUPERVISOR BEEHIVE KILN SUPERVISOR ct3 Etelvina HitchcockRN Diana Santiago RN RN af2 Juice Velarde,RT RT cs15 Corrections: (The following items were deleted from the chart) 14:52 14:49 BP 123 / 76; Pulse 95bpm; Resp 22bpm; Pulse Ox 90% 2 lpm Nasal Cannula; 55.34 kg ct3 Measured; ct3 20:29 20:23 Pulse 104bpm; MonitorResp 18bpm; Spontaneous; Pulse Ox 99% 4 lpm Nasal Cannula; af2 af2 MTDD
[2016-08-20 20:45] VITALS: BP 96/56
[2016-08-20 22:00] VITALS: BP 98/50
[2016-08-20] MEDS: TAMSULOSIN 0.4 MG CAP PO SCH (22:06)
[2016-08-20] MEDS: APIXABAN 2.5 MG TAB (ELIQUIS) PO SCH (22:06)
[2016-08-20] MEDS: FUROSEMIDE 20 MG/2 ML VIAL (J1940) IV SCH ×2 (22:06→22:48)
[2016-08-20] MEDS: SUCRALFATE 1 GM TAB PO SCH (22:08)
[2016-08-20] MEDS: BRINZOLAMIDE 1 % OPHTH SUSP (AZOPT) 10ML OD SCH (22:08)
[2016-08-20] MEDS: traMADol 50 MG TAB PO SCH (22:08)
[2016-08-20] MEDS ORDERED: ALBUTEROL SULFATE 2.5 MG/0.5 ML INH NEB SOLN INH PRN (22:15)
[2016-08-20] MEDS ORDERED: SLF 3 ML SYR IV PRN (22:45)
[2016-08-20] MEDS: IPRATROPIUM 0.5MG/ALBUTEROL 2.5MG INH SOL UD 3ML (DUONEB)(J7620) NEB SCH (23:22)
[2016-08-21] VITALS (9 sets, daily range): BP systolic 90–132; BP diastolic 52–72
[2016-08-21] MEDS: IPRATROPIUM 0.5MG/ALBUTEROL 2.5MG INH SOL UD 3ML (DUONEB)(J7620) NEB SCH ×5 (03:45→21:08)
[2016-08-21] MEDS: SLF 3 ML SYR IV SCH ×3 (06:22→21:31)
[2016-08-21] MEDS: LEVOTHYROXINE 0.075 MG TAB (75 MCG) PO SCH (06:22)
[2016-08-21] MEDS: SUCRALFATE 1 GM TAB PO SCH ×4 (09:34→21:30)
[2016-08-21] MEDS: APIXABAN 2.5 MG TAB (ELIQUIS) PO SCH ×2 (09:34→21:30)
[2016-08-21] MEDS: traMADol 50 MG TAB PO SCH ×2 (09:35→21:31)
[2016-08-21] MEDS: ASPIRIN 81 MG ENTERIC TAB PO SCH (09:35)
[2016-08-21] MEDS: SERTRALINE 100 MG TAB PO SCH (09:35)
[2016-08-21] MEDS: FUROSEMIDE 20 MG/2 ML VIAL (J1940) IV SCH (09:36)
[2016-08-21] MEDS: BRINZOLAMIDE 1 % OPHTH SUSP (AZOPT) 10ML OD SCH ×2 (09:36→21:31)
[2016-08-21] MEDS ORDERED: DIGOXIN INJ 0.5 MG/2 ML AMP (J1160) IV ONE (15:00)
[2016-08-21] MEDS ORDERED: SODIUM CHLORIDE 0.9% 1000 ML IV ONE (16:00)
--- NOTE | 2016-08-21 21:29 | ECHO ---
DATE OF PROCEDURE: 08/21/2016 REFERRING PHYSICIAN: Nima Page MD INDICATION: HEIGHT: 170 cm WEIGHT: 55 kg MEASUREMENTS: Left atrium: 1.14 cm Posterior wall: 1.16 cm Left ventricle diastole: 4.4 cm Left atrium: 4.1 cm Aortic root: 3.1 cm LVOT: 2.0 cm Inferior vena cava: 1.7 cm DOPPLER MEASUREMENTS: Aortic valve velocity: 152 cm/s LVOT velocity: 63.9 cm/s Moderately-severe mitral regurgitation. No mitral stenosis. Mild tricuspid regurgitation. Estimated right ventricle systolic pressure 34 mmHg assuming a right atrial pressure of 5 mmHg. Pulmonary artery systolic pressure 44 mmHg by pulmonary acceleration time method. DESCRIPTION: Rhythm was atrial fibrillation with controlled ventricular response. No pericardial effusion. Image quality was fair. CONCLUSIONS: 1. Moderate mitral annular calcification. Moderately-severe mitral regurgitation. No mitral stenosis. 2. Normal left ventricle size and systolic function. Normal left ventricle (LV) wall thickness. Left ventricular ejection fraction (LVEF) 65% by visual estimate. Unable to assess LV diastolic function in the setting of atrial fibrillation and significant mitral regurgitation. 3. Moderate aortic valve sclerosis. Aortic valve three-cuspid. No aortic stenosis. No aortic regurgitation. 4. Mild left atrial dilatation. 5. Suggestive of moderate elevation of pulmonary artery systolic pressure. 6. No pericardial effusion. 7. Left pleural effusion.
[2016-08-21] MEDS: TAMSULOSIN 0.4 MG CAP PO SCH (21:30)
--- NOTE | 2016-08-21 21:44 | ECGEPIP ---
Stationary ECG Study [facility] - ED Test Date: 2016-08-20 Pat Name: BRADEN TYLER Department: Room: - Gender: M [place] Measurer: ct : 1930 Requested By: KARRI TRINIDAD Order Number: [id number] Reading MD: Andreia Garsia Measurements Intervals [place] Rate: 105 P: UT: 0 QRS: 0 QRSD: 107 T: -61 QT: 359 QTc: 475 Interpretive Statements ATRIAL FIBRILLATION WITH RAPID VENTRICULAR RESPONSE NONSPECIFIC ST & T-WAVE ABNORMALITY NO PRIOR FOR COMPARISON Electronically Signed On 08-21-2016 21:44:30 EST by Andreia Garsia
[2016-08-22] VITALS (8 sets, daily range): BP systolic 91–130; BP diastolic 50–71; O2SAT 91
[2016-08-22] MEDS: IPRATROPIUM 0.5MG/ALBUTEROL 2.5MG INH SOL UD 3ML (DUONEB)(J7620) NEB SCH ×6 (00:15→20:32)
[2016-08-22] MEDS: LEVOTHYROXINE 0.075 MG TAB (75 MCG) PO SCH (06:04)
[2016-08-22] MEDS: SLF 3 ML SYR IV SCH ×3 (06:04→21:41)
[2016-08-22] MEDS: ASPIRIN 81 MG ENTERIC TAB PO SCH (09:17)
[2016-08-22] MEDS: APIXABAN 2.5 MG TAB (ELIQUIS) PO SCH ×2 (09:17→21:40)
[2016-08-22] MEDS: SERTRALINE 100 MG TAB PO SCH (09:17)
[2016-08-22] MEDS: SUCRALFATE 1 GM TAB PO SCH ×4 (09:17→21:40)
[2016-08-22] MEDS: BRINZOLAMIDE 1 % OPHTH SUSP (AZOPT) 10ML OD SCH ×2 (09:18→21:41)
[2016-08-22] MEDS: DIGOXIN 0.125 MG TAB PO SCH (09:18)
[2016-08-22] MEDS: traMADol 50 MG TAB PO SCH ×2 (09:18→21:41)
[2016-08-22] MEDS ORDERED: FUROSEMIDE 20 MG/2 ML VIAL (J1940) IV ONE (18:15)
[2016-08-22] MEDS: ACETAMINOPHEN TAB 650MG DOSE (2X325MG) PO PRN (18:55)
--- NOTE | 2016-08-22 21:37 | EDDOCDS ---
Physician Documentation [facility] Name: Marques Oliveira Age: 86 yrs Sex: Male : 1930 Arrival Date: 08/20/2016 Time: 14:29 Bed 4 Private MD: Disposition: 08/20/16 16:12 Hospitalization ordered by Nima Page for Inpatient Admission. Preliminary diagnosis is Acute on chronic combined systolic (congestive) and diastolic (congestive) heart failure. - Bed requested for PCU. - Status is Inpatient Admission. af2 - Condition is Stable. - Problem is an acute exacerbation. - Symptoms are unchanged. Historical: - Allergies: Adhesives; band-aids; PENICILLINS (Hives); - Home Meds: 1. Acetaminophen 1 gram Oral every 6 hours as needed 2. tramadol 50 mg oral tab every 4 hours as needed (Last dose: 08/20/2016 08:30) 3. gavisocon regular strength 15 ml nightly as needed 4. aspirin 81 mg Oral tab 1 tab once daily enteric coated 5. Azopt 1 drop in right eye twice daily 6. cilostazol 50 mg oral tab 1 tab 2 times per day 7. clopidogrel 75 mg oral tab 1 tab once daily 8. cyanocobalamin (vitamin B-12) 1,000 mcg oral tab daily 9. fluticasone-vilanterol 200 mcg/25mcg 1 puff daily 10. furosemide 20 mg oral tab once daily 11. levothyroxine 75 mcg oral tab once daily 12. lidocaine topical 5% 4 times daily as needed 13. loperamide 2 mg oral tab twice a day as needed 14. namzaric 28 mg/10 mg ER 1 cap in the evening 15. multivitamin Oral cap daily 16. nitroglycerin 0.4 mg SL subl 1 tab every 5 minutes 17. pitavastatin 2 mg oral tab 1 tab once daily 18. Sertraline 100 mg daily 19. sucralfate 1 gram Oral tab 1 tab 4 times per day 20. tamsulosin 0.4 mg oral cp24 1 cap once daily after supper 21. apixaban 2.5 mg oral tab 1 tab 2 times per day none in 8 days 22. diltiazem HCl 180 mg oral cp24 once daily 23. Protonix 40 mg Oral TbEC 1 tab once daily - PMHx: hydrocephalus; CAD; PVD; Atrial Fib; Hypercholesterolemia; Cancer, Bladder; cancer, esophagus; carotid stenosis; BPH; Arthritis; - PSHx: cystoscopy; introduction of catheter in aorta; aortography; CABG; Hernia repair; stent placement in right leg; stent placement in left leg; - Social history: Smoking status: Patient states former smoker of tobacco. No barriers to communication noted, The patient speaks fluent [place]. - Family history: Not pertinent. - : The pt / caregiver states he / she is on anticoagulants: Plavix. [facility] medication list is obtained from patient list. - Exposure Risk Screening:: None identified. Vital Signs: 08/20 14:47 BP 123 / 76 (auto/); ead 14:49 BP 123 / 76; Pulse 95; Resp 22; Temp 97.7(O); Pulse Ox 99% on 2 lpm NC; Weight 55.34 kg ct3 / 122 lbs (M); 14:50 Pulse 94 MON; Pulse Ox 98% ; ead 15:15 BP 111 / 66 (auto/); ead 15:15 Pulse 98 MON; Pulse Ox 99% ; ead 15:17 BP 118 / 62 (auto/); ead 15:18 Pulse 90 MON; Pulse Ox 100% ; ead 15:28 Temp 97.7(O); ead 15:47 BP 99 / 62 (auto/); ead 15:48 Pulse 94 MON; Pulse Ox 100% ; ead 16:02 BP 106 / 57 (auto/); ead 16:03 Pulse 92 MON; Pulse Ox 100% ; ead 16:17 BP 106 / 63 (auto/); ead 16:18 Pulse 94 MON; Pulse Ox 99% ; ead 16:32 BP 103 / 56 (auto/); ead 16:33 Pulse 96 MON; Pulse Ox 99% ; ead 16:47 BP 92 / 52 (auto/); ead 16:48 Pulse 98 MON; Pulse Ox 99% ; ead 16:50 Pulse 90 MON; Pulse Ox 99% ; ead 16:50 BP 90 / 57 (auto/); ead 16:51 Pulse 92 MON; Pulse Ox 98% ; ead 17:02 BP 103 / 58 (auto/); ead 17:03 Pulse 98 MON; Pulse Ox 98% ; ead 17:17 BP 115 / 60 (auto/); ead 17:18 BP 115 / 60; Pulse 100 MON; Resp 18; Temp 97.7; Pulse Ox 98% ; ead 17:32 BP 115 / 58 (auto/); ead 17:33 Pulse 98 MON; Pulse Ox 99% ; ead 17:47 BP 106 / 62 (auto/); ead 17:48 Pulse 96 MON; Pulse Ox 100% ; ead 18:02 BP 107 / 60 (auto/); ead 18:03 Pulse 90 MON; Resp 18; Pulse Ox 100% on 4 lpm NC; ead 18:17 BP 103 / 69 (auto/); ead 18:18 Pulse 96 MON; Resp 18; Pulse Ox 99% on 4 lpm NC; ead 18:20 Temp 98.1(O); ead 19:02 BP 127 / 99 (auto/); af2 19:03 Pulse 130 MON; Resp 18 S; Pulse Ox 99% on 4 lpm NC; af2 19:17 BP 159 / 64 (auto/); af2 19:18 Pulse 106 MON; Resp 18 S; Pulse Ox 99% on 4 lpm NC; af2 19:32 BP 131 / 68 (auto/); af2 19:33 Pulse 100 MON; Resp 18 S; Pulse Ox 100% on 4 lpm NC; af2 19:47 BP 151 / 69 (auto/); af2 19:48 Pulse 98 MON; Resp 18 S; Pulse Ox 99% on 4 lpm NC; af2 20:02 BP 123 / 80 (auto/); af2 20:03 Pulse 104 MON; Resp 18 S; Pulse Ox 100% on 4 lpm NC; af2 20:17 BP 141 / 95 (auto/); af2 20:17 Pulse 122 MON; Resp 18 S; Pulse Ox 99% on 4 lpm NC; af2 20:22 BP 128 / 72 (auto/); af2 20:23 Pulse 104 MON; Resp 18 S; Temp 97.9(TE); Pulse Ox 99% on 4 lpm NC; af2 MDM: 14:32 -Blood Culture (Adults Only), peripheral from different site, or from device/port/PICC le etc. if present ordered. 14:32 Starting Gate Driver/Pulse Ox/q 15 min VS ordered. le 14:32 IV Saline Lock ordered. le 14:32 Oxygen at 4L/Min NC or Home dosage ordered. le 14:32 Rhythm Strip to chart ordered. le 14:32 -Blood Culture Ordered. EDMS 14:32 B-Type Natiuretic Peptide Ordered. EDMS 14:32 Basic Metabolic Profile Ordered. EDMS 14:32 CBC with Diff Ordered. EDMS 14:32 Cardiac Injury Profile Ordered. EDMS 14:32 Troponin Ordered. EDMS 14:34 Call Respiratory ordered. le 14:34 Chest, 2 View (pa\E\lat) Ordered. EDMS 14:34 ECG WITH READING ER PHYS+CARDIAG ordered. EDMS 14:35 -Arterial Blood Gas Ordered. EDMS 14:40 Bladder Scan please ordered. le 14:50 Lactic Acid (Albert tube on ice) Ordered. EDMS 14:51 BED REQUEST+ADM ordered. EDMS 14:52 Repeat Temperature - Oral: Inform provider of result ordered. le 14:59 Call Respiratory complete. lbd 14:59 -Blood Culture (Adults Only), peripheral from different site, or from device/port/PICC lbd etc. if present complete. 15:01 BLOOD CULTURES Ordered. EDMS 15:11 RBC MORPH PROF NO CHARGE Ordered. EDMS 16:00 B-Type Natiuretic Peptide Reviewed. le 16:00 Basic Metabolic Profile Reviewed. le 16:00 CBC with Diff Reviewed. le 16:00 -Arterial Blood Gas Reviewed. le 16:00 Cardiac Injury Profile Reviewed. le 16:00 Troponin Reviewed. le 16:00 Lactic Acid (Albert tube on ice) Reviewed. le 16:00 RBC MORPH PROF NO CHARGE Reviewed. le 16:09 Furosemide 40 mg IVP once ordered. le 16:31 Financial registration complete. [id number] 16:49 CT Chest without contrast Ordered. EDMS 16:53 PHYSICAL THERAPY EVAL & TREAT ordered. EDMS 16:54 Admission / Observation Status ordered. EDMS 16:54 ECHOCARD,DOPPLER/COLOR FLOW ordered. EDMS 16:54 2 GRAM SODIUM DIET ordered. EDMS 16:54 LOW FAT LOW CHOLESTEROL DIET ordered. EDMS 19:31 CARDIAC INJURY PROFILE Ordered. EDMS 19:31 CARDIAC INJURY PROFILE Ordered. EDMS 19:31 TROPONIN Ordered. EDMS 19:31 TROPONIN Ordered. EDMS 08 11:22 T-Sheet-- Draft Copy was scanned into [employer] and attached to record. gb 11:22 ECG/EKG was scanned into [employer] and attached to record. gb 11:23 PCR was scanned into [employer] and attached to record. gb Administered Medications: 08/20 16:57 Drug: Furosemide 40 mg [furosemide 10 mg/mL injection solution (4 mL)] {Note: pt's bp ead 90/57. discussed with Ritika Mancera EDGE BRUSHER, 20mg given now. will give remaining 20 mg at approx 1800.} Route: IVP; Site: left forearm; 18:10 Follow up: remaining 20mg given IVP ead Signatures: Dispatcher [employer] EDMS Monica Sherman, RN RN kcs Sandra Mcleod, Full Stack Web Developer Unit lbd Albertina Hernandez, Reg Reg gb Ritika Mancera, Etelvina Hope RN RN ead Fulton, Amber, RN RN af2 Anna Bess, Reg Reg [id number] The chart was reviewed and I authenticate all verbal orders and agree with the evaluation and treatment provided.Corrections: (The following items were deleted from the chart) 17:01 16:55 CARDIAC INJURY PROFILE ordered. EDMS EDMS 17: 16:55 TROPONIN ordered. EDMS EDMS Attachments: 08/21 11:22 T-Sheet-- Draft Copy gb 11:22 ECG/EKG Chart Complete MTDD
--- NOTE | 2016-08-22 21:37 | EDDOCDS ---
Nurse's Notes [facility] Name: Marques Oliveira Age: 86 yrs Sex: Male : 1930 Arrival Date: 08/20/2016 Time: 14:29 Bed 4 Private MD: Diagnosis: Acute on chronic combined systolic (congestive) and diastolic (congestive) heart failure Presentation: 08/20 14:34 Presenting complaint: EMS states: patient has not felt well for a couple of weeks - kcs today with increased difficulty breathing. Suicide/Homicide risk assessment- the patient denies having any suicidal and/or homicidal ideations and does not present with any other emotional, behavioral or mental health complaints. 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 Transition of care: patient was not received from another setting of care. Care prior to arrival: See EMS report. Oxygen administered by EMS. 14:34 Acuity: RICHARD Level 3 kcs 14:34 Method Of Arrival: Ambulance kcs 14:34 Presenting complaint: states: patient has been unable to void today was able kcs yesterday - was eating and drinking normally yesterday. 18:27 Adult Sepsis Screening: Patient has a qSOFA score of. ead 19:27 Adult Sepsis Screening: The patient does not have new or worsening altered mentation. af2 Patient's respiratory rate is less than 22. Systolic blood pressure is greater than 100. Triage Assessment: 20:24 Respiratory: Onset: The symptoms/episode began/occurred at an unknown time. af2 Historical: - Allergies: Adhesives; band-aids; PENICILLINS (Hives); - Home Meds: 1. Acetaminophen 1 gram Oral every 6 hours as needed 2. tramadol 50 mg oral tab every 4 hours as needed (Last dose: 08/20/2016 08:30) 3. gavisocon regular strength 15 ml nightly as needed 4. aspirin 81 mg Oral tab 1 tab once daily enteric coated 5. Azopt 1 drop in right eye twice daily 6. cilostazol 50 mg oral tab 1 tab 2 times per day 7. clopidogrel 75 mg oral tab 1 tab once daily 8. cyanocobalamin (vitamin B-12) 1,000 mcg oral tab daily 9. fluticasone-vilanterol 200 mcg/25mcg 1 puff daily 10. furosemide 20 mg oral tab once daily 11. levothyroxine 75 mcg oral tab once daily 12. lidocaine topical 5% 4 times daily as needed 13. loperamide 2 mg oral tab twice a day as needed 14. namzaric 28 mg/10 mg ER 1 cap in the evening 15. multivitamin Oral cap daily 16. nitroglycerin 0.4 mg SL subl 1 tab every 5 minutes 17. pitavastatin 2 mg oral tab 1 tab once daily 18. Sertraline 100 mg daily 19. sucralfate 1 gram Oral tab 1 tab 4 times per day 20. tamsulosin 0.4 mg oral cp24 1 cap once daily after supper 21. apixaban 2.5 mg oral tab 1 tab 2 times per day none in 8 days 22. diltiazem HCl 180 mg oral cp24 once daily 23. Protonix 40 mg Oral TbEC 1 tab once daily - PMHx: hydrocephalus; CAD; PVD; Atrial Fib; Hypercholesterolemia; Cancer, Bladder; cancer, esophagus; carotid stenosis; BPH; Arthritis; - PSHx: cystoscopy; introduction of catheter in aorta; aortography; CABG; Hernia repair; stent placement in right leg; stent placement in left leg; - Social history: Smoking status: Patient states former smoker of tobacco. No barriers to communication noted, The patient speaks fluent Kazakh. - Family history: Not pertinent. - : The pt / caregiver states he / she is on anticoagulants: Plavix. Eliquis Home medication list is obtained from patient list. - Exposure Risk Screening:: None identified. Screenin:12 Screening information is obtained from the patient, family members. Fall risk: No risks ead identified. Fall risk: No risks identified. Assistance ADL's: requires no assistance with activities of daily living. Abuse/DV Screen: The patient / caregiver reports he/she is: not in a situation that causes fear, pain or injury. Nutritional screening: No deficits noted. home support is adequate. 19:27 Advance Directives: Further advance directive information is declined. af2 Assessment: 15:35 General: Appears in no apparent distress, Behavior is appropriate for age, cooperative. ead Neurological: Level of Consciousness is awake, alert, obeys commands, Oriented to person, place, time. Cardiovascular: Capillary refill < 3 seconds Chest pain is denied. Respiratory: Airway is patent Respiratory effort is even, unlabored, Reports shortness of breath cough that is. Derm: Skin is pink, warm & dry. 16:45 General: Appears in no apparent distress, comfortable, Behavior is appropriate for age, ead cooperative. Neurological: Level of Consciousness is awake, alert, obeys commands, Oriented to person, place, time. Respiratory: Airway is patent Respiratory effort is even, unlabored, Derm: Skin is pink, warm & dry. 17:27 General: Appears in no apparent distress, comfortable, Behavior is appropriate for age, ead cooperative. Respiratory: Respiratory effort is even, unlabored. Derm: Skin is pink, warm & dry. 18:10 General: Appears in no apparent distress, comfortable, Behavior is appropriate for age, ead cooperative. Pain: Denies pain. Neurological: No deficits noted. Respiratory: Airway is patent Respiratory effort is even, unlabored, Respiratory pattern is regular, symmetrical. Derm: Skin is pink, warm & dry. 18:12 Adult Sepsis Screening: The patient does not have new or worsening altered mentation. ead Patient's respiratory rate is less than 22. Systolic blood pressure is greater than 100. Patient has a qSOFA score of 0- Negative Sepsis Screen. 19:27 General: Appears in no apparent distress, comfortable, Behavior is appropriate for age, af2 cooperative, Assumed care of pt at this time, RR even and unlabored. Pt seated in upright position, eating meal tray. Will continue to monitor. PCU to call when ready to accept pt.. Cardiovascular: Rhythm is atrial fibrillation. Respiratory: Airway is patent Respiratory effort is even, unlabored. Derm: Skin is pink, warm & dry. 20:24 General: Appears in no apparent distress, comfortable, Behavior is appropriate for age, af2 cooperative. Neurological: Level of Consciousness is awake, alert, obeys commands. Respiratory: Airway is patent Respiratory effort is even, unlabored. Derm: Skin is pink, warm & dry. Vital Signs: 14:47 BP 123 / 76 (auto/); ead 14:49 BP 123 / 76; Pulse 95; Resp 22; Temp 97.7(O); Pulse Ox 99% on 2 lpm NC; Weight 55.34 kg ct3 (M); 14:50 Pulse 94 MON; Pulse Ox 98% ; ead 15:15 BP 111 / 66 (auto/); ead 15:15 Pulse 98 MON; Pulse Ox 99% ; ead 15:17 BP 118 / 62 (auto/); ead 15:18 Pulse 90 MON; Pulse Ox 100% ; ead 15:28 Temp 97.7(O); ead 15:47 BP 99 / 62 (auto/); ead 15:48 Pulse 94 MON; Pulse Ox 100% ; ead 16:02 BP 106 / 57 (auto/); ead 16:03 Pulse 92 MON; Pulse Ox 100% ; ead 16:17 BP 106 / 63 (auto/); ead 16:18 Pulse 94 MON; Pulse Ox 99% ; ead 16:32 BP 103 / 56 (auto/); ead 16:33 Pulse 96 MON; Pulse Ox 99% ; ead 16:47 BP 92 / 52 (auto/); ead 16:48 Pulse 98 MON; Pulse Ox 99% ; ead 16:50 Pulse 90 MON; Pulse Ox 99% ; ead 16:50 BP 90 / 57 (auto/); ead 16:51 Pulse 92 MON; Pulse Ox 98% ; ead 17:02 BP 103 / 58 (auto/); ead 17:03 Pulse 98 MON; Pulse Ox 98% ; ead 17:17 BP 115 / 60 (auto/); ead 17:18 BP 115 / 60; Pulse 100 MON; Resp 18; Temp 97.7; Pulse Ox 98% ; ead 17:32 BP 115 / 58 (auto/); ead 17:33 Pulse 98 MON; Pulse Ox 99% ; ead 17:47 BP 106 / 62 (auto/); ead 17:48 Pulse 96 MON; Pulse Ox 100% ; ead 18:02 BP 107 / 60 (auto/); ead 18:03 Pulse 90 MON; Resp 18; Pulse Ox 100% on 4 lpm NC; ead 18:17 BP 103 / 69 (auto/); ead 18:18 Pulse 96 MON; Resp 18; Pulse Ox 99% on 4 lpm NC; ead 18:20 Temp 98.1(O); ead 19:02 BP 127 / 99 (auto/); af2 19:03 Pulse 130 MON; Resp 18 S; Pulse Ox 99% on 4 lpm NC; af2 19:17 BP 159 / 64 (auto/); af2 19:18 Pulse 106 MON; Resp 18 S; Pulse Ox 99% on 4 lpm NC; af2 19:32 BP 131 / 68 (auto/); af2 19:33 Pulse 100 MON; Resp 18 S; Pulse Ox 100% on 4 lpm NC; af2 19:47 BP 151 / 69 (auto/); af2 19:48 Pulse 98 MON; Resp 18 S; Pulse Ox 99% on 4 lpm NC; af2 20:02 BP 123 / 80 (auto/); af2 20:03 Pulse 104 MON; Resp 18 S; Pulse Ox 100% on 4 lpm NC; af2 20:17 BP 141 / 95 (auto/); af2 20:17 Pulse 122 MON; Resp 18 S; Pulse Ox 99% on 4 lpm NC; af2 20:22 BP 128 / 72 (auto/); af2 20:23 Pulse 104 MON; Resp 18 S; Temp 97.9(TE); Pulse Ox 99% on 4 lpm NC; af2 Vitals: 14:49 Log In Time N/A - ambulance arrival. ct3 ED Course: 14:30 Patient visited by Sandra Mcleod, Magnetic Prospecting Operator. lbd 14:30 Patient moved to Waiting lbd 14:31 Etelvina Hitchcock,RN is Primary Nurse. lbd 14:31 Ritika Mancera FNP is PHCP. le 14:31 Patient moved to 4 lbd 14:36 Triage Initiated kcs 14:41 Patient visited by Ritika Mancera FNP. le 14:41 Patient visited by Ritika Mancera FNP. le 14:49 Accompanied by Family Member, Patient has correct armband on for positive ct3 identification. Placed in gown. Bed in low position. Call light in reach. Side rails up X2. software testing specialist on. Pulse ox on. NIBP on. 14:49 EKG done. (by ED staff). Reviewed by Ritika TRINIDAD. ct3 14:52 Patient visited by Candelaria Lloyd PCA. ct3 14:58 -Arterial Blood Gas Sent. cs15 15:02 Inserted saline lock: 20 gauge in left forearm and blood collected. The patient dy tolerated the procedure well. Labs drawn. (by ED staff). Sent per order to lab. 15:09 Lactic Acid (Albert tube on ice) Sent. ead 15:24 Patient visited by Etelvina Hitchcock,JULIANA. ead 15:35 The patient / caregiver is instructed regarding the plan of care and ED course. ead 15:35 Bladder Scan completed Results: 61 ml. ead 16:12 Nima Page is Hospitalizing Provider. le 16:27 Chest, 2 View (pa\E\lat) Returned. EDMS 18:10 No procedures done that require assistance. ead 18:14 CT Chest without contrast Returned. EDMS 18:59 Diana Kwong,RN is Primary Nurse. af2 19:28 Patient visited by Diana Kwong RN. af2 20:24 Patient visited by Diana KwongRN. af2 20:27 Patient visited by Diana Kwong RN. af2 08/21 11:22 T-Sheet-- Draft Copy was scanned into TeleFl[employer] and attached to record. gb 11:22 ECG/EKG was scanned into Tele[employer] and attached to record. gb 11:23 PCR was scanned into Tele[employer] and attached to record. gb Administered Medications: 08/20 16:57 Drug: Furosemide 40 mg [furosemide 10 mg/mL injection solution (4 mL)] {Note: pt's bp ead 90/57. discussed with Ritika Mancera SANDER PORTABLE MACHINE, 20mg given now. will give remaining 20 mg at approx 1800.} Route: IVP; Site: left forearm; 18:10 Follow up: remaining 20mg given IVP ead Intake: RT: 14:58 ABG's drawn from right radial artery allens test done and positive pressure held for 5 cs15 minutes no bleeding noted pressure bandage applied specimen sent pt. tolerated well. O2 via nasal cannula \T\ 4L/min. Order Results: Lab Order: B-Type Natiuretic Peptide; SPEC'M 08/20/16 14:49 Test: BRAIN NATRIURETIC PEPTIDE; Value: 384; Range: <100; Abnormal: Above high normal; Units: PG/ML; Status: F Lab Order: Basic Metabolic Profile; SPEC'M 08/20/16 14:49 Test: GLUCOSE, FASTING; Value: 118; Range: 83-110; Abnormal: Above high normal; Units: MG/DL; Status: F Test: BLOOD UREA NITROGEN; Value: 11; Range: 7-18; Units: MG/DL; Status: F Test: CREATININE FOR GFR; Value: 0.72; Range: 0.70-1.30; Units: MG/DL; Status: F Test: GLOMERULAR FILTRATION RATE; Value: > 60.0; Range: >35; Status: F Test: SODIUM LEVEL; Value: 139; Range: 136-145; Units: MEQ/L; Status: F Test: POTASSIUM SERUM; Value: 3.4; Range: 3.5-5.1; Abnormal: Below low normal; Units: MEQ/L; Status: F Test: CHLORIDE LEVEL; Value: 96; Range: 98-107; Abnormal: Below low normal; Units: MEQ/L; Status: F Test: CARBON DIOXIDE LEVEL; Value: 37; Range: 21-32; Abnormal: Above high normal; Units: MEQ/L; Status: F Test: ANION GAP; Value: 6; Range: 8-16; Abnormal: Below low normal; Units: MEQ/L; Status: F Test: CALCIUM LEVEL; Value: 8.6; Range: 8.8-10.2; Abnormal: Below low normal; Units: MG/DL; Status: F Test Note: ; Units are mL/min/1.73 m2 Chronic Kidney Disease Staging per NKF: Stage I & II GFR >=60 Normal to Mildly Decreased Stage III GFR 30-59 Moderately Decreased Stage IV GFR 15-29 Severely Decreased Stage V GFR <15 Very Little GFR Left ESRD GFR <15 on HVAC MANAGER Lab Order: CBC with Diff; SPEC'M 08/20/16 14:49 Test: WHITE BLOOD COUNT; Value: 10.5; Range: 4.0-10.0; Abnormal: Above high normal; Units: K/mm3; Status: F Test: RED BLOOD COUNT; Value: 3.58; Range: 4.30-6.10; Abnormal: Below low normal; Units: M/mm3; Status: F Test: HEMOGLOBIN; Value: 9.4; Range: 14.0-18.0; Abnormal: Below low normal; Units: g/dl; Status: F Test: HEMATOCRIT; Value: 31.5; Range: 42.0-52.0; Abnormal: Below low normal; Units: %; Status: F Test: MEAN CORPUSCULAR VOLUME; Value: 87.9; Range: 80.0-96.0; Units: fl; Status: F Test: MEAN CORPUSCULAR HEMOGLOBIN; Value: 26.2; Range: 27.0-33.0; Abnormal: Below low normal; Units: pg; Status: F Test: MEAN CORPUSCULAR HGB CONC; Value: 29.8; Range: 32.0-36.5; Abnormal: Below low normal; Units: g/dl; Status: F Test: RED CELL DISTRIBUTION WIDTH; Value: 14.9; Range: 11.5-14.5; Abnormal: Above high normal; Units: %; Status: F Test: PLATELET COUNT, AUTOMATED; Value: 310; Range: 150-450; Units: k/mm3; Status: F Test: NEUTROPHILS %; Value: 90.5; Range: 36.0-66.0; Abnormal: Above high normal; Units: %; Status: F Test: LYMPH %; Value: 3.1; Range: 24.0-44.0; Abnormal: Below low normal; Units: %; Status: F Test: MONO %; Value: 3.7; Range: 0.0-5.0; Units: %; Status: F Test: EOS %; Value: 2.3; Range: 0.0-3.0; Units: %; Status: F Test: BASO %; Value: 0.1; Range: 0.0-1.0; Units: %; Status: F Test: LARGE UNSTAINED CELL %; Value: 0.4; Range: 0.0-4.0; Units: %; Status: F Test: NEUTROPHILS #; Value: 9.5; Range: 1.8-7.7; Abnormal: Above high normal; Units: K/mm3; Status: F Test: LYMPH #; Value: 0.4; Range: 1.5-4.5; Abnormal: Below low normal; Units: K/mm3; Status: F Test: MONO #; Value: 0.4; Range: 0.0-0.8; Units: K/mm3; Status: F Test: EOS #; Value: 0.2; Range: 0.0-0.50; Units: K/mm3; Status: F Test: BASO #; Value: 0.0; Range: 0.0-0.2; Units: K/mm3; Status: F Test: LARGE UNSTAINED CELL #; Value: 0.0; Range: 0.0-0.4; Units: K/mm3; Status: F Lab Order: Cardiac Injury Profile; [facility] 08/20/16 14:49 Test: CPK CREATINE PHOSPHOKINASE; Value: 55; Range: 39-308; Units: U/L; Status: F Test: CK-MB VALUE MASS; Value: 1.5; Range: 0.0-3.6; Units: NG/ML; Status: F Test: MB/CK RELATIVE INDEX; Value: 2.72; Range: < OR =4; Status: F Test Note: ; DIAGNOSIS CRITERIA MMB ng/ml Relative Index (RI) NON-AMI < or = 5 N/A ALBERT ZONE > 5 < or = 4 AMI > 5 > 4 Lab Order: Troponin; [facility] 08/20/16 14:49 Test: TROPONIN I; Value: 0.05; Range: < 0.10; Units: NG/ML; Status: F Test Note: ; Troponin I Reference Interval for [employer] LOCI: 99th Percentile= 0.00-0.045 ng/ml Risk Stratification: <= 0.10 ng/ml Decreased Risk for Adverse Clinical Events. 0.10-1.50 ng/ml Increased Risk for Adverse Clinical Events. Evaluation of additional criterion and/or repeat testing in 2-6 hours is suggested to rule out myocardial damage. >= 1.50 ng/ml Indicative of Myocardial Injury. Lab Order: -Arterial Blood Gas; [facility] 08/20/16 14:56 Test: ABG pH (ARTERIAL); Value: 7.427; Range: 7.350-7.450; Units: UNITS; Status: F Test: ABG PARTIAL PRESSURE CO2; Value: 45.5; Range: 35.0-45.0; Abnormal: Above high normal; Units: mmHg; Status: F Test: ABG PARTIAL PRESSURE O2; Value: 109.6; Range: 75.0-100.0; Abnormal: Above high normal; Units: mmHg; Status: F Test: ABG TOTAL CO2; Value: 30.7; Range: 23.0-31.0; Units: MEQ/L; Status: F Test: ABG HCO3; Value: 29.3; Range: 22.0-26.0; Abnormal: Above high normal; Units: MEQ/L; Status: F Test: ABG BASE EXCESS; Value: 4.4; Range: -2.0-2.0; Abnormal: Above high normal; Status: F Test: ABG STANDARD HCO3; Value: 28.5; Range: 22.0-26.0; Abnormal: Above high normal; Units: MEQ/L; Status: F Test: ABG O2 SATURATION; Value: 98.4; Range: 95.0-99.0; Units: %; Status: F Test: ABG DEVICE; Value: NASAL XU; Status: F Lab Order: Lactic Acid (Albert tube on ice); SPEC'08/20/16 14:50 Test: LACTIC ACID SEPSIS PROTOCOL; Value: 1.3; Range: 0.4-2.0; Units: MMOL/L; Status: F Lab Order: RBC MORPH PROF NO CHARGE; SPEC08/20/16 14:49 Test: PLATELET ESTIMATE; Range: NORMAL; Status: I Test: HYPOCHROMASIA; Value: 2+; Status: F Test: PLATELET ESTIMATE; Value: NORMAL; Range: NORMAL; Status: F Radiology Order: Chest, 2 View (pa\E\lat) Test: Chest, 2 View (pa\E\lat) REASON FOR EXAMINATION: Shortness of Breath; Chest x-ray: Two views.; ; History: Shortness of breath.; ; Comparison chest x-ray April 04, 2015.; ; Findings: The patient is status post prior median sternotomy. Heart is; enlarged. There is pleural opacity bilaterally consistent with bilateral pleural; effusions. This appears to be larger on the left than the right. Diffuse; interstitial edema pattern is seen superimposed on some interstitial fibrosis.; This patient is status post esophagectomy and gastric pull-through procedure.; This produces a large soft tissue density to the right of the spine which is; unchanged. There are old post thoracotomy changes on the right.; ; Impression:; ; Cardiomegaly, bilateral pleural effusions and diffuse interstitial edema pattern; suggestive of CHF. Post surgical changes including esophagectomy and gastric; pull-through procedure.; ; ; Signed by; Reji Jaffe MD 08/20/2016 04:22 P; Radiology Order: CT Chest without contrast Test: CT Chest without contrast REASON FOR EXAMINATION: congestion, underlying chf, ?infiltrate; CT of the chest without IV contrast:; ; Comparison 02/06/2007.; ; The patient has a gastric pull-through procedure, similar to the prior study.; ; On the study today., there is a moderate left pleural effusion and a small right; pleural effusion.; ; There are multiple small lung nodules all in the 3-4 mm size range.; ; There is interstitial coarsening. This was not present previously. This could; be acute or chronic, cardiogenic or noncardiogenic.; ; There is no mediastinal adenopathy. In the absence of IV contrast M unable to; determine if there is axillary or hilar adenopathy. Cardiac size appears upper; normal. There is no pericardial effusion.; ; Upper abdomen:; ; Probable gallbladder calculus. Left renal upper pole cysts. I suspect there are; calcifications in the wall of a large left renal upper pole cyst, not present; previously.; ; ; Signed by; Finn Wong MD 08/20/2016 06:04 P; Outcome: 16:12 Decision to Hospitalize by Provider. le 18:11 Discharge Assessment: patient administered narcotics - no. CT Study completed. ead 20:23 The following High Risk Discharge criteria are identified: None. Admitted to PCU af2 accompanied by nurse, accompanied by tech, via stretcher, with oxygen, on monitor, with chart. Condition: stable. Property :Personal belongings accompany Pt. 20:36 Patient left the ED. af2 Signatures: Dispatcher [employer] EDMS Monica Sherman, RN RN Sandra Vega, Magnetic Prospecting Operator Unit lbd Albertina Hernandez, Reg Reg Jamal Barrios, RN JULIANA dy Ritika Mancera, SANDER PORTABLE MACHINE SANDER PORTABLE MACHINE Candelaria Byrd, LOCATION AND MEASUREMENT TECHNICIAN LOCATION AND MEASUREMENT TECHNICIAN ct3 Etelvina Hitchcock,Diana Santiago RN, RN RN af2 Juice Velarde,RT RT cs15 Corrections: (The following items were deleted from the chart) 14:52 14:49 BP 123 / 76; Pulse 95bpm; Resp 22bpm; Pulse Ox 90% 2 lpm Nasal Cannula; 55.34 kg ct3 Measured; ct3 20:29 20:23 Pulse 104bpm; MonitorResp 18bpm; Spontaneous; Pulse Ox 99% 4 lpm Nasal Cannula; af2 af2 Chart Complete MTDD
[2016-08-22] MEDS: guaiFENesin ER 600 MG TAB PO SCH (21:41)
[2016-08-22] MEDS: TAMSULOSIN 0.4 MG CAP PO SCH (21:41)
--- NOTE | 2016-08-22 22:22 | IPNPDOC ---
Subjective General Date Seen The patient was seen on 08/21/16. Chief Complaint/HPI The patient is a 86-year-old male admitted with a reason for visit of Acute Exacerbation Of Chf. Subjective Events since last encounter feeling better this am Objective Physical Examination General Exam: Positive: Alert, Cooperative, No Acute Distress Eye Exam: Positive: Conjunctiva & lids normal, EOMI, PERRLA, Negative: Sclera icteric ENT Exam: Positive: Atraumatic, Mucous membr. moist/pink, Pharynx Normal Neck Exam: Positive: Supple, Negative: JVD, thyromegaly Chest Exam: Positive: Diminished, Rales Heart Exam: Positive: Normal S1, Normal S2, Rate Normal, Regular Rhythm, Negative: Murmurs, Rubs Abdomen Exam: Positive: Normal bowel sounds, Soft, Negative: Hepatospenomegaly, Tenderness Extremity Exam: Positive: Normal pulses, Negative: Clubbing, Cyanosis, Edema Assessment /Plan Problems Problems: (1) Acute exacerbation of CHF (congestive heart failure) Status: Acute Problem Text: on lasix. echo pending. had good negative balance. (2) Gait instability Status: Chronic (3) Dementia Status: Chronic (4) Normal pressure hydrocephalus Status: Chronic (5) Hyperlipidemia Status: Chronic (6) Hx of CABG Status: Chronic (7) PAD (peripheral artery disease) Status: Chronic (8) CAD (coronary artery disease) Status: Chronic (9) History of esophageal cancer Status: Chronic (10) History of bladder cancer Status: Chronic (11) A-fib Status: Chronic Problem Text: on anticoagulation Plan/VTE VTE Prophylaxis Ordered?: Yes VS, I&O, 24H, Fishbone Vital Signs/I&O Vital Signs Date Time Temp Pulse Resp B/P Pulse Ox O2 Delivery O2 Flow Rate FiO2 08/21/16 12:00 96.8 94 18 108/62 97 Nasal Cannula 2.0 I&O- Last 24 Hours up to 6 AM 08/21/16 06:00 Intake Total 0 ml Output Total 1550 ml Balance -1550 ml Laboratory Data 24H LABS Laboratory Tests 2 08/20/16 14:49: Anion Gap 6L, B-Type Natriuretic Peptide 384H, White Blood Count 10.5H, Red Blood Count 3.58L, Hemoglobin 9.4L, Hematocrit 31.5L, Mean Corpuscular Volume 87.9, Mean Corpuscular Hemoglobin 26.2L, Mean Corpuscular Hemoglobin Concent 29.8L, Red Cell Distribution Width 14.9H, Platelet Count 310, Neutrophils (%) ( Auto) 90.5H, Lymphocytes (%) (Auto) 3.1L, Monocytes (%) (Auto) 3.7, Eosinophils (%) (Auto) 2.3, Basophils (%) (Auto) 0.1, Neutrophils # (Auto) 9.5H, Lymphocytes # (Auto) 0.4L, Monocytes # (Auto) 0.4, Eosinophils # (Auto) 0.2, Basophils # (Auto) 0.0, Blood Urea Nitrogen 11, Creatinine 0.72, Sodium Level 139, Potassium Level 3.4L, Chloride Level 96L, Carbon Dioxide Level 37H, Calcium Level 8.6L, Total Creatine Kinase 55, Creatine Kinase MB 1.5, Creatine Kinase MB Relative Index 2.72, Glomerular Filtration Rate > 60.0, Hypochromasia 2+, Large Unclassified Cells # 0.0, Large Unclassified Cells % 0.4, Platelet Estimate NORMAL, Troponin I 0.05 08/20/16 14:50: Lactic Acid (Sepsis) 1.3 08/20/16 14:56: Arterial Blood pH 7.427, Arterial Blood Partial Pressure CO2 45.5H, Arterial Blood Partial Pressure O2 109.6H, Arterial Blood Total CO2 30.7, Arterial Blood HCO3 29.3H, Arterial Blood Base Excess 4.4H, Arterial Blood Oxygen Saturation 98.4, Blood Gas Bicarbonate Standard 28.5H, Oxygen Delivery Device NASAL XU 08/21/16 00:51: Total Creatine Kinase 53, Creatine Kinase MB 1.6, Creatine Kinase MB Relative Index 3.01, Troponin I 0.06 08/21/16 08:01: Creatine Kinase MB 2.3, Creatine Kinase MB Relative Index 4.79H, Total Creatine Kinase 48, Troponin I 0.07 CBC/BMP Laboratory Tests 08/20/16 14:49 Calcium Level 8.6 L, Total Creatine Kinase 55, Red Blood Count 3.58 L, Mean Corpuscular Volume 87.9, Mean Corpuscular Hemoglobin 26.2 L, Mean Corpuscular Hemoglobin Concent 29.8 L, Red Cell Distribution Width 14.9 H, Neutrophils (%) ( Auto) 90.5 H, Lymphocytes (%) (Auto) 3.1 L, Monocytes (%) (Auto) 3.7, Eosinophils (%) (Auto) 2.3, Basophils (%) (Auto) 0.1, Neutrophils # (Auto) 9.5 H , Lymphocytes # (Auto) 0.4 L, Monocytes # (Auto) 0.4, Eosinophils # (Auto) 0.2, Basophils # (Auto) 0.0 Microbiology Microbiology 08/20/16 Blood Culture, Received Pending 08/20/16 Blood Culture, Received Pending JAVIER SAAVEDRA MD Aug 21, 2016 13:20
--- NOTE | 2016-08-22 22:33 | IPNPDOC ---
Subjective General Date Seen The patient was seen on 08/22/16. Subjective Chief Complaint/HPI The patient is a 86-year-old male admitted with a reason for visit of Acute Exacerbation Of Chf. Events since last encounter yesterday evening pateint went into afib with rvr with hypotension, complained of feeling tired and very sick , pateint improved with 500 cc ivf and was loaded with digoxin to control the heart rate. after this the patient felt better , no fever or chills, no nausea or vomiting , no diarrhea. denied any chest pain or sob this am however still requiring oxygen though out the day. Objective Physical Examination General Exam: Positive: Alert, Cooperative, No Acute Distress Eye Exam: Positive: Conjunctiva & lids normal, EOMI, PERRLA, Negative: Sclera icteric ENT Exam: Positive: Atraumatic, Mucous membr. moist/pink, Pharynx Normal Neck Exam: Positive: Supple, Negative: JVD, thyromegaly Chest Exam: Positive: Diminished, Rales Heart Exam: Positive: Normal S1, Normal S2, Rate Normal, Regular Rhythm, Negative: Murmurs, Rubs Abdomen Exam: Positive: Normal bowel sounds, Soft, Negative: Hepatospenomegaly, Tenderness Extremity Exam: Positive: Normal pulses, Negative: Clubbing, Cyanosis, Edema Assessment /Plan Problems Problems: (1) A-fib Status: Acute Problem Text: with rvr rate controlled with digoxin on anticoagulation (2) Acute exacerbation of CHF (congestive heart failure) Status: Acute Problem Text: with preserved systolic function and with severe mitral regurgitation. possibly diastolic CHF. on lasix po. echo showed normal EF, moderate mitral regurgitation, pulmonary hypertension. (3) Chronic respiratory failure with hypoxia Status: Chronic Problem Text: uses home oxygen for chronic chf with chronic hypoxia. (4) Mitral regurgitation Status: Chronic (5) Gait instability Status: Chronic (6) Dementia Status: Chronic (7) Normal pressure hydrocephalus Status: Chronic (8) Hyperlipidemia Status: Chronic (9) Hx of CABG Status: Chronic (10) PAD (peripheral artery disease) Status: Chronic (11) CAD (coronary artery disease) Status: Chronic (12) History of esophageal cancer Status: Chronic (13) History of bladder cancer Status: Chronic Plan/VTE VTE Prophylaxis Ordered?: Yes VS, I&O, 24H, Fishbone Vital Signs/I&O Vital Signs Date Time Temp Pulse Resp B/P Pulse Ox O2 Delivery O2 Flow Rate FiO2 08/22/16 21:41 20 08/22/16 20:32 91 Nasal Cannula 2.0 08/22/16 20:07 97.0 105 130/69 I&O- Last 24 Hours up to 6 AM 08/22/16 06:00 Intake Total 1880 ml Output Total 2000 ml Balance -120 ml Laboratory Data Microbiology Microbiology 08/20/16 Blood Culture - Preliminary, Resulted No Growth after 48 hours. All Specime... 08/20/16 Blood Culture - Preliminary, Resulted No Growth after 48 hours. All Specime... JAVIER SAAVEDRA MD Aug 22, 2016 22:33
--- NOTE | 2016-08-23 00:30 | REPUSA ---
Clinical history: cough. Comparison: None. Findings: The mediastinum is within normal limits. The heart is enlarged. There is moderate diffuse p ulmonary vascular congestion with bilateral lower lobe infiltrates. The osseous structures and soft t issues are unremarkable. Impression: Cardiomegaly, with moderate congestive heart failure with diffuse bilateral interstitial infiltrates.
--- NOTE | 2016-08-23 01:19 | IPNPDOC ---
Text Note Date of Service The patient was seen on 08/23/16. NOTE Subjective: I was called to the unit this evening to evaluate patient due to worsening shortness of breath. Patient says that he has been having more shortness of breath this evening. He denies having any fevers, chills, night sweats or lower extremity swelling. Objective: Vitals: Temperature 97.3, pulse 94, respiratory rate 20, blood pressure 96/50, pulse ox 93% on 2 L nasal cannula Gen.: Patient awake in bed, verbal and able to answer questions appropriately. He does not appear to be in any acute distress Lungs: Transmitted upper airway sounds, unable to appreciate any wheezes, rales or rhonchi Extremities: No swelling in either lower extremity Imaging Portable chest x-ray showed cardiomegaly, moderate congestive heart failure with I lateral interstitial infiltrates Assessment / Plan: #1: Shortness of breath: Patient with chest x-ray that shows moderate congestive heart failure, however due to patient's hypotension we will not be able to give him any extra diuretic at this point. We will continue to monitor patient. Due to patient's upper airway congestion on lung auscultation I placed an order for Mucinex tab 600 mg by mouth twice a day My preceptor for this patient encounter was physically present in the building during the encounter and was fully available. As needed, all aspects of the patient interview, examination, medical decision making process, and medical care plan development were reviewed and approved by the preceptor. Preceptor is aware and concurs with the plan as stated in the body of this note and will attest to such by his/her cosignature. VS,Fishbone, I+O VS, Fishbone, I+O Vital Signs Date Time Temp Pulse Resp B/P Pulse Ox O2 Delivery O2 Flow Rate FiO2 08/22/16 23:09 97.3 94 20 96/50 93 Nasal Cannula 2.0 I&O- Last 24 Hours up to 6 AM 08/23/16 06:00 Intake Total 610 ml Output Total 700 ml Balance -90 ml MIREYA WALSH DO Aug 23, 2016 01:18
[2016-08-23] MEDS: IPRATROPIUM 0.5MG/ALBUTEROL 2.5MG INH SOL UD 3ML (DUONEB)(J7620) NEB SCH ×7 (02:19→23:32)
[2016-08-23 05:33] VITALS: BP 113/60
[2016-08-23] MEDS: SLF 3 ML SYR IV SCH ×3 (05:48→21:43)
[2016-08-23] MEDS: LEVOTHYROXINE 0.075 MG TAB (75 MCG) PO SCH (05:48)
[2016-08-23 06:30] LABS: DIGOXIN LEVEL 1.1 NG/ML (0.5-2.0)
[2016-08-23 07:22] LABS: ANION GAP 9 MEQ/L (8-16); BLOOD UREA NITROGEN 12 MG/DL (7-18); CALCIUM LEVEL 8.3 MG/DL (8.8-10.2); CARBON DIOXIDE LEVEL 35 MEQ/L (21-32); CHLORIDE LEVEL 93 MEQ/L (98-107); CREATININE FOR GFR 0.57 MG/DL (0.70-1.30); GLOMERULAR FILTRATION RATE > 60.0 (>35); GLUCOSE, FASTING 80 MG/DL (83-110); SODIUM LEVEL 137 MEQ/L (136-145)
[2016-08-23 07:30] LABS: BASO % 0.2 % (0.0-1.0); EOS # 0.1 K/mm3 (0.0-0.50); EOS % 0.9 % (0.0-3.0); LARGE UNSTAINED CELL # 0.1 K/mm3 (0.0-0.4); LARGE UNSTAINED CELL % 1.6 % (0.0-4.0); LYMPH # 0.6 K/mm3 (1.5-4.5); LYMPH % 6.4 % (24.0-44.0); MEAN CORPUSCULAR HEMOGLOBIN 26.3 pg (27.0-33.0); MEAN CORPUSCULAR VOLUME 87.7 fl (80.0-96.0); MONO # 0.7 K/mm3 (0.0-0.8); MONO % 8.5 % (0.0-5.0); NEUTROPHILS # 7.3 K/mm3 (1.8-7.7); NEUTROPHILS % 82.4 % (36.0-66.0); PLATELET COUNT, AUTOMATED 262 k/mm3 (150-450); RED CELL DISTRIBUTION WIDTH 15.1 % (11.5-14.5); WHITE BLOOD COUNT 8.8 K/mm3 (4.0-10.0)
[2016-08-23 08:00] VITALS: BP 103/52
[2016-08-23] MEDS ORDERED: FUROSEMIDE 20 MG TAB PO SCH (09:00)
[2016-08-23] MEDS: SUCRALFATE 1 GM TAB PO SCH ×4 (09:03→21:43)
[2016-08-23] MEDS: SERTRALINE 100 MG TAB PO SCH (09:03)
[2016-08-23] MEDS: guaiFENesin ER 600 MG TAB PO SCH ×2 (09:03→21:43)
[2016-08-23] MEDS: ASPIRIN 81 MG ENTERIC TAB PO SCH (09:03)
[2016-08-23] MEDS: DIGOXIN 0.125 MG TAB PO SCH (09:03)
[2016-08-23] MEDS: APIXABAN 2.5 MG TAB (ELIQUIS) PO SCH ×2 (09:04→21:43)
[2016-08-23] MEDS: BRINZOLAMIDE 1 % OPHTH SUSP (AZOPT) 10ML OD SCH ×2 (09:05→21:42)
[2016-08-23] MEDS: traMADol 50 MG TAB PO SCH ×2 (09:05→21:43)
--- NOTE | 2016-08-23 11:04 | IPNPDOC ---
Subjective General Date Seen The patient was seen on 08/23/16. Subjective Chief Complaint/HPI The patient is a 86-year-old male admitted with a reason for visit of Acute Exacerbation Of Chf. Events since last encounter feeling well this am , denies any chest pain or sob , has some cough however cannot bring up any phlegm , no fever or chills, extremely weak. Objective Physical Examination General Exam: Positive: Alert, Cooperative, No Acute Distress Eye Exam: Positive: Conjunctiva & lids normal, EOMI, PERRLA, Negative: Sclera icteric ENT Exam: Positive: Atraumatic, Mucous membr. moist/pink, Pharynx Normal Neck Exam: Positive: Supple, Negative: JVD, thyromegaly Chest Exam: Positive: Diminished, Normal air movement, Rales Heart Exam: Positive: Irregular Rhythm, Normal S1, Normal S2, Rate Normal, Negative: Murmurs, Rubs Telemetry: Positive: Atrial fibrillation Abdomen Exam: Positive: Normal bowel sounds, Soft, Negative: Hepatospenomegaly, Tenderness Extremity Exam: Positive: Normal pulses, Negative: Clubbing, Cyanosis, Edema Skin Exam: Positive: Nl turgor and temperature, Negative: Breakdown, Rash Assessment /Plan Problems Problems: (1) A-fib Status: Acute Problem Text: with rvr rate controlled with digoxin on anticoagulation (2) Acute exacerbation of CHF (congestive heart failure) Status: Acute Problem Text: with preserved systolic function and with severe mitral regurgitation. possibly diastolic CHF. on lasix po. echo showed normal EF, moderate mitral regurgitation, pulmonary hypertension. (3) Chronic respiratory failure with hypoxia Status: Chronic Problem Text: uses home oxygen for chronic chf with chronic hypoxia. (4) Mitral regurgitation Status: Chronic (5) Gait instability Status: Chronic Problem Text: will continue with PT will need home care (6) Dementia Status: Chronic (7) Normal pressure hydrocephalus Status: Chronic (8) Hyperlipidemia Status: Chronic (9) Hx of CABG Status: Chronic (10) PAD (peripheral artery disease) Status: Chronic (11) CAD (coronary artery disease) Status: Chronic (12) History of esophageal cancer Status: Chronic (13) History of bladder cancer Status: Chronic Plan/VTE VTE Prophylaxis Ordered?: Yes VS, I&O, 24H, Fishbone Vital Signs/I&O Vital Signs Date Time Temp Pulse Resp B/P Pulse Ox O2 Delivery O2 Flow Rate FiO2 08/23/16 09:05 18 Nasal Cannula 08/23/16 09:03 80 08/23/16 08:00 96.8 103/52 100 2.0 I&O- Last 24 Hours up to 6 AM 08/23/16 05:59 Intake Total 610 ml Output Total 700 ml Balance -90 ml Laboratory Data 24H LABS Laboratory Tests 2 08/23/16 05:28: B-Type Natriuretic Peptide 504H, White Blood Count 8.8, Red Blood Count 3.57L, Hemoglobin 9.4L, Hematocrit 31.3L, Mean Corpuscular Volume 87.7, Mean Corpuscular Hemoglobin 26.3L, Mean Corpuscular Hemoglobin Concent 30.0L, Red Cell Distribution Width 15.1H, Platelet Count 262, Neutrophils (%) (Auto) 82.4H , Lymphocytes (%) (Auto) 6.4L, Monocytes (%) (Auto) 8.5H, Eosinophils (%) (Auto ) 0.9, Basophils (%) (Auto) 0.2, Neutrophils # (Auto) 7.3, Lymphocytes # (Auto) 0.6L, Monocytes # (Auto) 0.7, Eosinophils # (Auto) 0.1, Basophils # (Auto) 0.0, Large Unclassified Cells # 0.1, Large Unclassified Cells % 1.6 08/23/16 05:31: Anion Gap 9, Blood Urea Nitrogen 12, Creatinine 0.57L, Sodium Level 137, Potassium Level 4.0, Chloride Level 93L, Carbon Dioxide Level 35H, Calcium Level 8.3L, Digoxin Level 1.1, Glomerular Filtration Rate > 60.0 CBC/BMP Laboratory Tests 08/23/16 05:28 Red Blood Count 3.57 L, Mean Corpuscular Volume 87.7, Mean Corpuscular Hemoglobin 26.3 L, Mean Corpuscular Hemoglobin Concent 30.0 L, Red Cell Distribution Width 15.1 H, Neutrophils (%) (Auto) 82.4 H, Lymphocytes (%) (Auto ) 6.4 L, Monocytes (%) (Auto) 8.5 H, Eosinophils (%) (Auto) 0.9, Basophils (%) ( Auto) 0.2, Neutrophils # (Auto) 7.3, Lymphocytes # (Auto) 0.6 L, Monocytes # ( Auto) 0.7, Eosinophils # (Auto) 0.1, Basophils # (Auto) 0.0 08/23/16 05:31 Calcium Level 8.3 L Microbiology Microbiology 08/20/16 Blood Culture - Preliminary, Resulted No Growth after 48 hours. All Specime... 08/20/16 Blood Culture - Preliminary, Resulted No Growth after 48 hours. All Specime... JAVIRE SAAVEDRA MD Aug 23, 2016 11:04
[2016-08-23 12:00] VITALS: BP 101/56
[2016-08-23] MEDS: ACETAMINOPHEN TAB 650MG DOSE (2X325MG) PO PRN (15:34)
[2016-08-23] MEDS: FUROSEMIDE 20 MG TAB PO SCH (17:00)
[2016-08-23] MEDS: TAMSULOSIN 0.4 MG CAP PO SCH (21:43)
[2016-08-23 22:00] VITALS: BP 130/60
[2016-08-24 02:00] VITALS: BP 130/63
[2016-08-24] MEDS: IPRATROPIUM 0.5MG/ALBUTEROL 2.5MG INH SOL UD 3ML (DUONEB)(J7620) NEB SCH ×6 (02:54→23:45)
[2016-08-24] MEDS: SLF 3 ML SYR IV SCH ×3 (05:57→20:45)
[2016-08-24] MEDS: LEVOTHYROXINE 0.075 MG TAB (75 MCG) PO SCH (05:57)
[2016-08-24 06:00] VITALS: BP 130/60
[2016-08-24 06:20] LABS: ADD MORPHOLOGY? YES; BASO % 0.1 % (0.0-1.0); EOS # 0.1 K/mm3 (0.0-0.50); EOS % 1.5 % (0.0-3.0); LARGE UNSTAINED CELL # 0.1 K/mm3 (0.0-0.4); LARGE UNSTAINED CELL % 1.6 % (0.0-4.0); LYMPH # 0.5 K/mm3 (1.5-4.5); LYMPH % 5.8 % (24.0-44.0); MEAN CORPUSCULAR HEMOGLOBIN 25.7 pg (27.0-33.0); MEAN CORPUSCULAR HGB CONC 29.3 g/dl (32.0-36.5); MEAN CORPUSCULAR VOLUME 87.7 fl (80.0-96.0); MONO # 0.5 K/mm3 (0.0-0.8); MONO % 5.8 % (0.0-5.0); NEUTROPHILS # 6.8 K/mm3 (1.8-7.7); NEUTROPHILS % 85.2 % (36.0-66.0); PLATELET COUNT, AUTOMATED 313 k/mm3 (150-450); RED CELL DISTRIBUTION WIDTH 14.7 % (11.5-14.5)
[2016-08-24 06:53] LABS: HYPOCHROMASIA 2+
[2016-08-24 06:59] LABS: ANION GAP 6 MEQ/L (8-16); BLOOD UREA NITROGEN 13 MG/DL (7-18); CALCIUM LEVEL 8.4 MG/DL (8.8-10.2); CARBON DIOXIDE LEVEL 38 MEQ/L (21-32); CHLORIDE LEVEL 94 MEQ/L (98-107); CREATININE FOR GFR 0.62 MG/DL (0.70-1.30); GLOMERULAR FILTRATION RATE > 60.0 (>35); GLUCOSE, FASTING 85 MG/DL (83-110); POTASSIUM SERUM 3.9 MEQ/L (3.5-5.1); SODIUM LEVEL 138 MEQ/L (136-145)
[2016-08-24] MEDS: SUCRALFATE 1 GM TAB PO SCH ×4 (08:40→20:45)
[2016-08-24] MEDS: DIGOXIN 0.125 MG TAB PO SCH (08:40)
[2016-08-24] MEDS: ASPIRIN 81 MG ENTERIC TAB PO SCH (08:40)
[2016-08-24] MEDS: guaiFENesin ER 600 MG TAB PO SCH ×2 (08:41→20:44)
[2016-08-24] MEDS: SERTRALINE 100 MG TAB PO SCH (08:41)
[2016-08-24] MEDS: traMADol 50 MG TAB PO SCH ×2 (08:41→20:45)
[2016-08-24] MEDS: BRINZOLAMIDE 1 % OPHTH SUSP (AZOPT) 10ML OD SCH ×2 (08:42→21:16)
[2016-08-24] MEDS: FUROSEMIDE 20 MG TAB PO SCH ×2 (08:42→17:30)
[2016-08-24] MEDS: APIXABAN 2.5 MG TAB (ELIQUIS) PO SCH ×2 (08:42→20:44)
[2016-08-24 10:00] VITALS: BP 98/57
[2016-08-24 14:00] VITALS: BP 115/59
--- NOTE | 2016-08-24 14:29 | IPNPDOC ---
Subjective General Date Seen The patient was seen on 08/24/16. Subjective Chief Complaint/HPI The patient is a 86-year-old male admitted with a reason for visit of Acute Exacerbation Of Chf. Events since last encounter feeling tired this am , has thick secretions at the throat which he cannot cough out. no fever or chills, no chest pain or sob , no abdominal pain , nausea or vomiting. Objective Physical Examination General Exam: Positive: Alert, Cooperative, No Acute Distress Eye Exam: Positive: Conjunctiva & lids normal, EOMI, PERRLA, Negative: Sclera icteric ENT Exam: Positive: Atraumatic, Mucous membr. moist/pink, Pharynx Normal Neck Exam: Positive: Supple, Negative: JVD, thyromegaly Chest Exam: Positive: Diminished, Normal air movement, Rales Heart Exam: Positive: Irregular Rhythm, Normal S1, Normal S2, Rate Normal, Negative: Murmurs, Rubs Telemetry: Positive: Atrial fibrillation Abdomen Exam: Positive: Normal bowel sounds, Soft, Negative: Hepatospenomegaly, Tenderness Extremity Exam: Positive: Normal pulses, Negative: Clubbing, Cyanosis, Edema Skin Exam: Positive: Nl turgor and temperature, Negative: Breakdown, Rash Assessment /Plan Problems Problems: (1) A-fib Status: Acute Problem Text: with rvr rate controlled with digoxin on anticoagulation (2) Acute exacerbation of CHF (congestive heart failure) Status: Acute Problem Text: with preserved systolic function and with severe mitral regurgitation. possibly diastolic CHF. on lasix po. echo showed normal EF, moderate mitral regurgitation, pulmonary hypertension. (3) Chronic respiratory failure with hypoxia Status: Chronic Problem Text: uses home oxygen for chronic chf with chronic hypoxia. (4) Mitral regurgitation Status: Chronic (5) Gait instability Status: Chronic Problem Text: will continue with PT will need home care (6) Dementia Status: Chronic (7) Normal pressure hydrocephalus Status: Chronic (8) Hyperlipidemia Status: Chronic (9) Hx of CABG Status: Chronic (10) PAD (peripheral artery disease) Status: Chronic (11) CAD (coronary artery disease) Status: Chronic (12) History of esophageal cancer Status: Chronic (13) History of bladder cancer Status: Chronic Plan/VTE VTE Prophylaxis Ordered?: Yes VS, I&O, 24H, Fishbone Vital Signs/I&O Vital Signs Date Time Temp Pulse Resp B/P Pulse Ox O2 Delivery O2 Flow Rate FiO2 2/11/17 10:00 96.1 96 20 98/57 91 Nasal Cannula 2.0 I&O- Last 24 Hours up to 6 AM 08/24/16 06:00 Intake Total 780 ml Output Total 475 ml Balance 305 ml Laboratory Data 24H LABS Laboratory Tests 2 08/24/16 06:03: Anion Gap 6L, B-Type Natriuretic Peptide 291H, White Blood Count 8.0, Red Blood Count 3.49L, Hemoglobin 9.0L, Hematocrit 30.6L, Mean Corpuscular Volume 87.7, Mean Corpuscular Hemoglobin 25.7L, Mean Corpuscular Hemoglobin Concent 29.3L, Red Cell Distribution Width 14.7H, Platelet Count 313, Neutrophils (%) (Auto) 85.2H, Lymphocytes (%) (Auto) 5.8L, Monocytes (%) (Auto) 5.8H, Eosinophils (%) ( Auto) 1.5, Basophils (%) (Auto) 0.1, Neutrophils # (Auto) 6.8, Lymphocytes # ( Auto) 0.5L, Monocytes # (Auto) 0.5, Eosinophils # (Auto) 0.1, Basophils # (Auto ) 0.0, Blood Urea Nitrogen 13, Creatinine 0.62L, Sodium Level 138, Potassium Level 3.9, Chloride Level 94L, Carbon Dioxide Level 38H, Calcium Level 8.4L, Digoxin Level 1.0, Glomerular Filtration Rate > 60.0, Hypochromasia 2+, Large Unclassified Cells # 0.1, Large Unclassified Cells % 1.6, Platelet Estimate NORMAL CBC/BMP Laboratory Tests 08/24/16 06:03 Calcium Level 8.4 L, Red Blood Count 3.49 L, Mean Corpuscular Volume 87.7, Mean Corpuscular Hemoglobin 25.7 L, Mean Corpuscular Hemoglobin Concent 29.3 L, Red Cell Distribution Width 14.7 H, Neutrophils (%) (Auto) 85.2 H, Lymphocytes (%) ( Auto) 5.8 L, Monocytes (%) (Auto) 5.8 H, Eosinophils (%) (Auto) 1.5, Basophils ( %) (Auto) 0.1, Neutrophils # (Auto) 6.8, Lymphocytes # (Auto) 0.5 L, Monocytes # (Auto) 0.5, Eosinophils # (Auto) 0.1, Basophils # (Auto) 0.0 Microbiology Microbiology 08/20/16 Blood Culture - Preliminary, Resulted No Growth after 72 hours. All specime... 08/20/16 Blood Culture - Preliminary, Resulted No Growth after 72 hours. All specime... JAVIER SAAVEDRA MD Aug 24, 2016 14:29
[2016-08-24 18:00] VITALS: BP 108/64
[2016-08-24] MEDS: TAMSULOSIN 0.4 MG CAP PO SCH (20:45)
[2016-08-24 22:00] VITALS: BP 115/63
[2016-08-25] MEDS: IPRATROPIUM 0.5MG/ALBUTEROL 2.5MG INH SOL UD 3ML (DUONEB)(J7620) NEB SCH ×3 (03:41→12:00)
[2016-08-25] MEDS: LEVOTHYROXINE 0.075 MG TAB (75 MCG) PO SCH (05:32)
[2016-08-25] MEDS: SLF 3 ML SYR IV SCH ×2 (05:38→14:00)
[2016-08-25 06:00] VITALS: BP 123/47
[2016-08-25 07:06] LABS: EOS % 0.5 % (0.0-3.0); LARGE UNSTAINED CELL # 0.1 K/mm3 (0.0-0.4); LARGE UNSTAINED CELL % 0.9 % (0.0-4.0); LYMPH # 0.4 K/mm3 (1.5-4.5); LYMPH % 3.6 % (24.0-44.0); MEAN CORPUSCULAR HEMOGLOBIN 25.1 pg (27.0-33.0); MEAN CORPUSCULAR HGB CONC 28.4 g/dl (32.0-36.5); MEAN CORPUSCULAR VOLUME 88.2 fl (80.0-96.0); MONO # 0.6 K/mm3 (0.0-0.8); MONO % 5.3 % (0.0-5.0); NEUTROPHILS # 9.6 K/mm3 (1.8-7.7); NEUTROPHILS % 89.6 % (36.0-66.0); PLATELET COUNT, AUTOMATED 371 k/mm3 (150-450); RED CELL DISTRIBUTION WIDTH 14.7 % (11.5-14.5); WHITE BLOOD COUNT 10.7 K/mm3 (4.0-10.0)
[2016-08-25 07:21] LABS: ANION GAP 7 MEQ/L (8-16); BLOOD UREA NITROGEN 16 MG/DL (7-18); CALCIUM LEVEL 8.8 MG/DL (8.8-10.2); CARBON DIOXIDE LEVEL 37 MEQ/L (21-32); CHLORIDE LEVEL 93 MEQ/L (98-107); CREATININE FOR GFR 0.75 MG/DL (0.70-1.30); GLOMERULAR FILTRATION RATE > 60.0 (>35); GLUCOSE, FASTING 134 MG/DL (83-110); POTASSIUM SERUM 3.9 MEQ/L (3.5-5.1); SODIUM LEVEL 137 MEQ/L (136-145)
[2016-08-25] MEDS: BRINZOLAMIDE 1 % OPHTH SUSP (AZOPT) 10ML OD SCH (09:00)
[2016-08-25] MEDS ORDERED: MEROPENEM INJ 1 GM in D5W MINI-BAG PLUS 100 ML IV SCH (10:00)
[2016-08-25] MEDS ORDERED: SCOPOLAMINE 1.5 MG TRANSDERMAL TOP SCH (10:00)
[2016-08-25 10:03] LABS: ABG BASE EXCESS 7.5 (-2.0-2.0); ABG HCO3 36.6 MEQ/L (22.0-26.0); ABG PARTIAL PRESSURE O2 103.7 mmHg (75.0-100.0); ABG STANDARD HCO3 31.3 MEQ/L (22.0-26.0); ABG TOTAL CO2 39.5 MEQ/L (23.0-31.0)
[2016-08-25 10:07] LABS: ABG pH (ARTERIAL) 7.206 UNITS (7.350-7.450)
[2016-08-25 10:08] LABS: ABG PARTIAL PRESSURE CO2 94.4 mmHg (35.0-45.0)
--- NOTE | 2016-08-25 10:20 | IPNPDOC ---
Subjective General Date Seen The patient was seen on 08/25/16. Subjective Chief Complaint/HPI The patient is a 86-year-old male admitted with a reason for visit of Acute Exacerbation Of Chf. Events since last encounter pateint worsened overnight , has been drowsy overnight this am minimally responsive, has extremely labored breathing , huge amounts of secretions in the throat which he is unable to clear, tachypneic with very little chest movements. no fever or chills, no signs of infection . Discussed with and sons and they wanted to make him comfortable at this point with no further interventions Objective Physical Examination General Exam: Positive: Moderate Distress, Other (lethargic) Eye Exam: Positive: PERRLA, Negative: Sclera icteric ENT Exam: Positive: Atraumatic, Mucous membr. moist/pink, Pharynx Normal Neck Exam: Positive: Supple, Negative: JVD, thyromegaly Chest Exam: Positive: Diminished, Other (tachypniec), Rales Heart Exam: Positive: Irregular Rhythm, Normal S1, Normal S2, Tachycardic, Negative: Murmurs, Rubs Abdomen Exam: Positive: BS Hypoactive, Soft, Negative: Hepatospenomegaly, Tenderness Extremity Exam: Positive: Normal pulses, Negative: Clubbing, Cyanosis, Edema Skin Exam: Positive: Nl turgor and temperature, Negative: Breakdown, Rash Assessment /Plan Problems Problems: (1) Comfort measures only status Status: Acute Problem Text: will put the patient on scopolamine patch , morphine and ativan. (2) Acute respiratory failure with hypoxia and hypercapnia Status: Acute (3) Acute exacerbation of CHF (congestive heart failure) Status: Acute Problem Text: with preserved systolic function and with severe mitral regurgitation. possibly diastolic CHF.. echo showed normal EF, moderate mitral regurgitation, pulmonary hypertension. (4) A-fib Status: Acute Problem Text: with rvr rate was controlled with digoxin was on anticoagulation (5) Chronic respiratory failure with hypoxia Status: Chronic Problem Text: uses home oxygen for chronic chf with chronic hypoxia. (6) Mitral regurgitation Status: Chronic (7) Gait instability Status: Chronic Problem Text: will continue with PT will need home care (8) Dementia Status: Chronic (9) Normal pressure hydrocephalus Status: Chronic (10) Hyperlipidemia Status: Chronic (11) Hx of CABG Status: Chronic (12) PAD (peripheral artery disease) Status: Chronic (13) CAD (coronary artery disease) Status: Chronic (14) History of esophageal cancer Status: Chronic Problem Text: with history fo surgery with colonic pull through. (15) History of bladder cancer Status: Chronic Plan/VTE VTE Prophylaxis Ordered?: Yes VS, I&O, 24H, Fishbone Vital Signs/I&O Vital Signs Date Time Temp Pulse Resp B/P Pulse Ox O2 Delivery O2 Flow Rate FiO2 08/25/16 06:00 96.6 110 20 123/47 90 Room Air 08/25/16 03:33 4.0 I&O- Last 24 Hours up to 6 AM 08/25/16 06:00 Intake Total 620 ml Output Total 100 ml Balance 520 ml Laboratory Data 24H LABS Laboratory Tests 2 08/25/16 06:32: Anion Gap 7L, White Blood Count 10.7H, Red Blood Count 3.81L, Hemoglobin 9.5L, Hematocrit 33.6L, Mean Corpuscular Volume 88.2, Mean Corpuscular Hemoglobin 25.1L, Mean Corpuscular Hemoglobin Concent 28.4L, Red Cell Distribution Width 14.7H, Platelet Count 371, Neutrophils (%) (Auto) 89.6H, Lymphocytes (%) (Auto) 3.6L, Monocytes (%) (Auto) 5.3H, Eosinophils (%) (Auto) 0.5, Basophils (%) (Auto ) 0.0, Neutrophils # (Auto) 9.6H, Lymphocytes # (Auto) 0.4L, Monocytes # (Auto) 0.6, Eosinophils # (Auto) 0.0, Basophils # (Auto) 0.0, Blood Urea Nitrogen 16, Creatinine 0.75, Sodium Level 137, Potassium Level 3.9, Chloride Level 93L, Carbon Dioxide Level 37H, Calcium Level 8.8, Glomerular Filtration Rate > 60.0, Large Unclassified Cells # 0.1, Large Unclassified Cells % 0.9 CBC/BMP Laboratory Tests 08/25/16 06:32 Calcium Level 8.8, Red Blood Count 3.81 L, Mean Corpuscular Volume 88.2, Mean Corpuscular Hemoglobin 25.1 L, Mean Corpuscular Hemoglobin Concent 28.4 L, Red Cell Distribution Width 14.7 H, Neutrophils (%) (Auto) 89.6 H, Lymphocytes (%) ( Auto) 3.6 L, Monocytes (%) (Auto) 5.3 H, Eosinophils (%) (Auto) 0.5, Basophils ( %) (Auto) 0.0, Neutrophils # (Auto) 9.6 H, Lymphocytes # (Auto) 0.4 L, Monocytes # (Auto) 0.6, Eosinophils # (Auto) 0.0, Basophils # (Auto) 0.0 Microbiology Microbiology 08/20/16 Blood Culture - Preliminary, Resulted No Growth after 72 hours. All specime... 08/20/16 Blood Culture - Preliminary, Resulted No Growth after 72 hours. All specime... JAVIER SAAVEDRA MD Aug 25, 2016 07:40
[2016-08-25] MEDS: LORazepam 2 MG/ML VIAL (J2060) IV PRN ×3 (12:22→18:54)
--- NOTE | 2016-08-25 12:32 | REP ---
AP PORTABLE CHEST: 08/25/2016. Comparison: 08/22/2016, 08/20/2016 chest x-ray, CT chest 08/20/2016. Clinical history: CHF. Semi-erect AP chest shows sternotomy wires. There is a large opacity right lateral chest consistent with the known gastric pull-through for prior surgery for esophageal carcinoma. This was seen on CT 5 days ago. Bilateral effusions again seen. There is vascular congestion and some interstitial edema with underlying fibrosis. Patchy airspace opacities bilateral mid lung zones slightly increased. Degree of vascular congestion also slightly increased. Calcified tortuous aorta. Degenerative changes and demineralization of the spine and shoulders. Signed by Immanuel Oropeza MD 08/25/2016 07:13 P
[2016-08-25] MEDS: MORPHINE 10MG/0.5ML ORAL CONCENTRATE SOLUTION U/D SL PRN ×6 (17:01→20:15)
--- NOTE | 2016-08-26 21:10 | DSES ---
DATE OF ADMISSION: 08/20/2016 DATE OF DISCHARGE/: 08/25/2016 PRIMARY CARE PROVIDER: Oc Thakkar MD DISCHARGE DIAGNOSES: 1. Acute respiratory failure with hypoxia and hypercapnia. 2. Acute exacerbation of congestive heart failure, possibly diastolic. 3. Severe mitral regurgitation. 4. Pulmonary hypertension. 5. Atrial fibrillation. 6. Gait instability. 7. Dementia. 8. Normal pressure hydrocephalus. 9. Hyperlipidemia. 10. Coronary artery disease status post coronary artery bypass graft (CABG). 11. History of peripheral artery disease with bilateral lower extremity stenting. 12. History of esophageal cancer, treated by surgery in the past. 13. History of bladder cancer. 14. Carotid artery stenosis. HOSPITAL COURSE: This is an 86-year-old male who presented to the hospital with worsening shortness of breath for 2-3 days and nonproductive cough and inability to bring up secretions. Patient was recently found to have normal pressure hydrocephalus by MRA of brain and had declined surgical intervention for possible ventriculoperitoneal ([employer]) shunt. He was found to have acute bronchitis as well as congestive heart failure exacerbation. Patient was started on Lasix with initial improvement. However, patient was having lots of secretions and could not cough out the secretions. Patient then again had worsening of shortness of breath with tachypnea and hardly any chest movement. Patient had a blood gas drawn which showed hypercarbic respiratory failure with a pCO2 of 94 on nonrebreather mask and a pO2 of 103. At this point, after discussion with and sons, it was decided to make the patient comfort measures only. Patient was started on Ativan, morphine, and scopolamine patch, and subsequently the patient on 08/25/2016 at 21:05 p.m. [facility]
== END 2016-08-25 23:45 | disposition expired | DRG 291 ==
LOC: M ED 14:29 → M ED INP 16:47 → M PCU 20:45 → M MS5PR 08-23 14:00
PROVIDERS: ADMIT Internal Medicine; ATTEND Internal Medicine Nephrology
DX: I50.33 Acute on chronic diastolic (congestive) heart failure (principal); J96.21 Acute and chronic respiratory failure with hypoxia; J96.02 Acute respiratory failure with hypercapnia; G91.2 (Idiopathic) normal pressure hydrocephalus; E78.5 Hyperlipidemia, unspecified; I27.2 Other secondary pulmonary hypertension; Z51.5 Encounter for palliative care; I48.91 Unspecified atrial fibrillation; I25.10 Atherosclerotic heart disease of native coronary artery without angina pectoris; I65.29 Occlusion and stenosis of unspecified carotid artery; I73.9 Peripheral vascular disease, unspecified; F03.90 Unspecified dementia, unspecified severity, without behavioral disturbance, psychotic disturbance, mood disturbance, and anxiety; R26.81 Unsteadiness on feet; I34.0 Nonrheumatic mitral (valve) insufficiency; Z85.51 Personal history of malignant neoplasm of bladder; Z85.01 Personal history of malignant neoplasm of esophagus; Z95.1 Presence of aortocoronary bypass graft; Z79.01 Long term (current) use of anticoagulants; Z79.82 Long term (current) use of aspirin; Z79.899 Other long term (current) drug therapy; Z88.0 Allergy status to penicillin; Z91.048 Other nonmedicinal substance allergy status; Z99.81 Dependence on supplemental oxygen